=== PATIENT | male | born 1955 | race Caucasian/White ===

== ENCOUNTER 2019-07-25 13:04 | Observation (INO) | payer OTHER ==
[2019-07-25] MEDS ORDERED: SODIUM CHLORIDE 0.9% 1,000 ML IV STA ×2 (13:40)
[2019-07-25] MEDS ORDERED: FAMOTIDINE 20 MG/2 ML VIAL IV STA (13:41)
--- NOTE | 2019-07-25 13:42 | ED ---
General Adult HPI - General Chief complaint: Nausea/Vomiting/Diarrhea Stated complaint: Vomiting Time Seen by Provider: 07/25/19 13:31 Source: patient, RN notes reviewed Mode of arrival: ambulatory Limitations: no limitations - History of Present Illness Initial comments: Patient is a pleasant 62-year-old male presenting to the emergency department with vomiting and dizziness. Patient does have history of previous dizziness. Patient states he took some Augmentin for the first time and after that started vomiting multiple times and has been sweaty. Patient has somewhat limited history because he does not feel well and is vomiting during evaluation. Patient states there may be some minimal shortness of breath and minimal abdominal discomfort which he feels is likely related with emesis. No weakness. Patient states he does also have a mild headache. - Related Data Home Medications Medication Instructions Recorded Confirmed Losartan/Hydrochlorothiazide 1 tab PO DAILY@1200 08/20/15 05/29/16 [Losartan-Hctz 100-25 mg Tab] Multivitamins, Thera [Multivitamin] 1 tab PO DAILY@1200 08/20/15 05/29/16 Ibuprofen [Motrin] 400 mg PO Q6HR PRN 05/11/16 05/29/16 HYDROcodone/APAP 5-325MG [[place] 5] 1 - 2 tab PO Q4H PRN 05/29/16 05/29/16 Previous Rx's Medication Instructions Recorded Amoxicillin/Potassium Clav 1 tab PO Q12HR #20 tab 06/01/16 [Augmentin 500-125 Tablet] Nicotine 14Mg/24Hr Patch [Habitrol] 1 patch TRANSDERM DAILY #30 patch 06/01/16 metroNIDAZOLE [Flagyl] 500 mg PO BID #20 tab 06/01/16 Allergies Allergy/AdvReac Type Severity Reaction Status Date / Time No Known Allergies Allergy Verified 05/29/16 08:35 Review of Systems ROS Statement: Those systems with pertinent positive or pertinent negative responses have been documented in the HPI. ROS Other: All systems not noted in ROS Statement are negative. Constitutional: Denies: fever Eyes: Denies: eye pain ENT: Denies: ear pain Respiratory: Denies: cough Cardiovascular: Denies: chest pain Endocrine: Denies: fatigue Gastrointestinal: Reports: as per HPI, nausea, vomiting Genitourinary: Denies: dysuria Musculoskeletal: Denies: back pain Skin: Denies: rash Neurological: Reports: headache, vertigo. Denies: weakness, confusion Past Medical History Past Medical History: Hypertension Additional Past Medical History / Comment(s): Recent bronchitis, hx [place] Palsy History of Any Multi-Drug Resistant Organisms: None Reported Past Surgical History: Appendectomy, Tonsillectomy Additional Past Surgical History / Comment(s): 2016 colonoscopy, tumor removed from rt side lower back. Past Anesthesia/Blood Transfusion Reactions: No Reported Reaction Past Psychological History: No Psychological Hx Reported Smoking Status: Current every day smoker Past Alcohol Use History: None Reported Past Drug Use History: None Reported - Past Family History Mother Family Medical History: Cancer Additional Family Medical History / Comment(s): Mother of lymphoma. Father Family Medical History: Coronary Artery Disease (CAD), Deep Vein Thrombosis (DVT) Additional Family Medical History / Comment(s): Father has had CABG General Exam Limitations: no limitations General appearance: alert Head exam: Present: normocephalic Eye exam: Present: normal appearance, PERRL, EOMI. Absent: nystagmus ENT exam: Present: normal oropharynx Neck exam: Present: normal inspection Respiratory exam: Present: normal lung sounds bilaterally Cardiovascular Exam: Present: regular rate, normal rhythm Expanded Peripheral pulses: 2+: Radial (R), Radial (L), Posterior Tibialis (R), Posterior Tibialis (L), Dorsalis Pedis (R), Dorsalis Pedis (L) GI/Abdominal exam: Present: soft. Absent: tenderness Extremities exam: Present: normal inspection. Absent: pedal edema, calf tenderness Neurological exam: Present: alert, CN II-XII intact. Absent: motor sensory deficit Expanded Neurological exam: Present: protecting the airway Patient oriented to: Present: person, place, time Speech: Present: fluid speech Motor strength exam: RUE: 5, LUE: 5, RLE: 5, LLE: 5 Eye Response: (4) open spontaneously Motor Response: (6) obeys commands Verbal Response: (5) oriented Psychiatric exam: Present: flat affect Skin exam: Present: diaphoretic Course Vital Signs 07/25/19 07/25/19 07/25/19 13:21 13:35 14:00 Temperature 97.8 F Pulse Rate 94 102 H 99 Respiratory 18 19 17 Rate Blood Pressure 79/57 115/80 116/75 O2 Sat by Pulse 97 100 100 Oximetry 07/25/19 07/25/19 14:27 15:06 Temperature Pulse Rate 100 97 Respiratory 18 17 Rate Blood Pressure 105/66 109/82 O2 Sat by Pulse 100 100 Oximetry EKG Findings - EKG Comments: EKG Findings:: Normal sinus rhythm 97. ME 136. QRS 96. QT 354. QTC 449. Normal axis. Normal QRS. No acute ST change. Medical Decision Making - Medical Decision Making Patient again reevaluated and feels somewhat improved however still feels dizzy. Secondary to patient's poor parents case was discussed with Dr. Baldwin, who will admit covering for Dr. Louis. - Lab Data Result diagrams: 07/25/19 13:50 07/25/19 13:50 Lab Results 07/25/19 07/25/19 07/25/19 Range/Units 13:50 13:50 13:50 WBC 12.7 H (3.8-10.6) k/uL RBC 5.94 H (4.30-5.90) m/uL Hgb 18.9 H (13.0-17.5) gm/dL Hct 54.4 H (39.0-53.0) % MCV 91.6 (80.0-100.0) fL MCH 31.8 (25.0-35.0) pg MCHC 34.8 (31.0-37.0) g/dL RDW 12.9 (11.5-15.5) % Plt Count 285 (150-450) k/uL Neutrophils % (Manual) 68 % Band Neutrophils % 6 % Lymphocytes % (Manual) 22 % Monocytes % (Manual) 4 % Neutrophils # (Manual) 9.30 H (1.3-7.7) k/uL Lymphocytes # (Manual) 2.79 (1.0-4.8) k/uL Monocytes # (Manual) 0.51 (0-1.0) k/uL Nucleated RBCs 0 (0-0) /100 WBC Manual Slide Review Performed Reactive Lymphocytes Present PT 9.4 (9.0-12.0) sec INR 0.9 (<1.2) APTT 19.6 L (22.0-30.0) sec Sodium 135 L (137-145) mmol/L Potassium 4.7 (3.5-5.1) mmol/L Chloride 99 (98-107) mmol/L Carbon Dioxide 20 L (22-30) mmol/L Anion Gap 16 mmol/L BUN 19 (9-20) mg/dL Creatinine 1.42 H (0.66-1.25) mg/dL Est GFR (CKD-EPI)AfAm 61 (>60 ml/min/1.73 sqM) Est GFR (CKD-EPI)NonAf 53 (>60 ml/min/1.73 sqM) Glucose 190 H (74-99) mg/dL Calcium 10.6 H (8.4-10.2) mg/dL Total Bilirubin 0.9 (0.2-1.3) mg/dL AST 37 (17-59) U/L ALT 30 (4-49) U/L Alkaline Phosphatase 105 (38-126) U/L Creatine Kinase 68 (55-170) U/L Troponin I (0.000-0.034) ng/mL Total Protein 9.4 H (6.3-8.2) g/dL Albumin 5.3 H (3.5-5.0) g/dL Amylase 92 (30-110) U/L Lipase 240 (23-300) U/L 07/25/19 Range/Units 13:50 WBC (3.8-10.6) k/uL RBC (4.30-5.90) m/uL Hgb (13.0-17.5) gm/dL Hct (39.0-53.0) % MCV (80.0-100.0) fL MCH (25.0-35.0) pg MCHC (31.0-37.0) g/dL RDW (11.5-15.5) % Plt Count (150-450) k/uL Neutrophils % (Manual) % Band Neutrophils % % Lymphocytes % (Manual) % Monocytes % (Manual) % Neutrophils # (Manual) (1.3-7.7) k/uL Lymphocytes # (Manual) (1.0-4.8) k/uL Monocytes # (Manual) (0-1.0) k/uL Nucleated RBCs (0-0) /100 WBC Manual Slide Review Reactive Lymphocytes PT (9.0-12.0) sec INR (<1.2) APTT (22.0-30.0) sec Sodium (137-145) mmol/L Potassium (3.5-5.1) mmol/L Chloride (98-107) mmol/L Carbon Dioxide (22-30) mmol/L Anion Gap mmol/L BUN (9-20) mg/dL Creatinine (0.66-1.25) mg/dL Est GFR (CKD-EPI)AfAm (>60 ml/min/1.73 sqM) Est GFR (CKD-EPI)NonAf (>60 ml/min/1.73 sqM) Glucose (74-99) mg/dL Calcium (8.4-10.2) mg/dL Total Bilirubin (0.2-1.3) mg/dL AST (17-59) U/L ALT (4-49) U/L Alkaline Phosphatase (38-126) U/L Creatine Kinase (55-170) U/L Troponin I <0.012 (0.000-0.034) ng/mL Total Protein (6.3-8.2) g/dL Albumin (3.5-5.0) g/dL Amylase (30-110) U/L Lipase (23-300) U/L - Radiology Data Radiology results: report reviewed (Computed tomography scan of the brain shows no acute hemorrhage or shift. Sinus disease CT angiogram of the brain and neck show some narrowing of the A1 segment on the right 60%.) Disposition Clinical Impression: Vertigo, Hypotension Disposition: ADMITTED IP TO THIS HOSP Is patient prescribed a controlled substance at d/c from ED?: No Referrals: Pacheco Louis DO [Primary Care Provider] - 1-2 days Decision Time: 15:51
[2019-07-25] MEDS ORDERED: METOCLOPRAMIDE 5 MG/ML 2 ML VIAL IVP STA (13:45)
[2019-07-25 14:31] LABS: Albumin 5.3 g/dL (3.5-5.0); Calcium 10.6 mg/dL (8.4-10.2); Total Bilirubin 0.9 mg/dL (0.2-1.3); Total Protein 9.4 g/dL (6.3-8.2)
[2019-07-25 14:33] LABS: Potassium 4.7 mmol/L (3.5-5.1)
[2019-07-25] MEDS ORDERED: MECLIZINE 12.5 MG TAB PO STA (14:35)
[2019-07-25 14:36] LABS: INR 0.9 (<1.2); Prothrombin Time 9.4 sec (9.0-12.0)
[2019-07-25 14:48] LABS: Partial Thromboplastin Time 19.6 sec (22.0-30.0)
[2019-07-25 14:49] LABS: HCT 54.4 % (39.0-53.0); HGB 18.9 gm/dL (13.0-17.5); MCH 31.8 pg (25.0-35.0); MCHC 34.8 g/dL (31.0-37.0); MCV 91.6 fL (80.0-100.0); Mean Platelet Volume 9.7; RBC 5.94 m/uL (4.30-5.90); RDW 12.9 % (11.5-15.5); WBC 12.7 k/uL (3.8-10.6)
--- NOTE | 2019-07-25 15:01 | CT ---
EXAMINATION TYPE: CT brain wo con DATE OF EXAM: 07/25/2019 COMPARISON: CT brain dated 03/21/2012 HISTORY: Headache and vertigo CT DLP: 1518.5 mGycm Automated exposure control for dose reduction was used. TECHNIQUE: CT scan of the head is performed without contrast. FINDINGS: There is no acute intracranial hemorrhage or midline shift identified. There is diffuse v entricular and sulcal prominence consistent with diffuse age-related cerebral atrophy. No suspicious extra-axial fluid collection. The globes are intact. Moderate paranasal sinus disease is seen with m oderate mucosal thickening of the ethmoid sinuses extending into the frontal recesses into the fronta l sinuses. Mild rightward nasal septal deviation and a small rightward nasal septal spur. Maxillary s inuses, sphenoid sinuses and mastoid air cells are well aerated. 9 mm right frontal subcutaneous nodu le is seen, possibly subcutaneous sebaceous cyst. IMPRESSION: 1. No acute intracranial hemorrhage or midline shift. 2. Moderate paranasal sinus disease of ethmoid sinuses extending into the frontal sinuses. 3. 9 mm right subcutaneous frontal scalp lesion. Correlate with physical exam, possible subcutaneous sebaceous cyst.
--- NOTE | 2019-07-25 15:24 | CT ---
EXAMINATION TYPE: CT angio head neck DATE OF EXAM: 07/25/2019 HISTORY: headache, nausea, vomiting, dizziness COMPARISON: CT brain of the same date CT DLP: 466.5 mGycm. Automated Exposure Control for Dose Reduction was Utilized. TECHNIQUE: CTA scan of the neck is performed with IV Contrast, patient injected with 65 mL of Isovue 370, axial images are obtained, coronal and sagittal reformatted images are reviewed. Three-D recons tructed images are created on an independent workstation and reviewed. 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 Nonh emodynamically significant calcific atheromatous change of the proximal left internal carotid artery. Remaining visualized portions of the cervical internal carotid arteries and carotid bulbs are patent . The vertebral arteries are patent with slight dominance of the right vertebral artery. The right anterior cerebral artery A1 segment is diminutive in comparison to the left but does appear patent. Posterior communicating arteries are not well visualized and may be diminutive or congenital ly absent. Other: Moderate emphysematous changes of the lung apices that are predominantly paraseptal and spicul ated biapical pleural parenchymal scarring. Calcifications appear dystrophic of the left thyroid lobe . Incidental note of a right-sided niurka bullosa. Mild multilevel degenerative change of the cervica l spine. Moderate paranasal sinus disease is seen as discussed on the CT brain dictation of the same date. IMPRESSION: 1. Asymmetric narrowing of the A1 segment on the right, approximately 60% stenosis. This may be conge nital or acquired. No evidence of aneurysmal outpouching or dissection in the major arterial vasculat ure of the head or neck. 2. Moderate emphysematous changes in lung apices. 3. Moderate paranasal sinus disease.
[2019-07-25 15:46] LABS: Band Neutrophils % 6 %; Lymphocytes # (M) 2.79 k/uL (1.0-4.8); Monocytes # (M) 0.51 k/uL (0-1.0); Neutrophils % (M) 68 %; Nucleated Red Blood Cells 0 /100 WBC (0-0); Reactive Lymphocytes Present; Total Cells Counted 100
[2019-07-25 15:47] LABS: Platelet Count 285 k/uL (150-450)
[2019-07-25] MEDS ORDERED: NALOXONE 0.4 MG/ML 1 ML VIAL IV PRN (15:51)
[2019-07-25] MEDS ORDERED: LORazepam 2 MG/ML INJ IV PRN (15:51)
[2019-07-25] MEDS ORDERED: MECLIZINE 25 MG TAB PO PRN (15:54)
[2019-07-25 16:43] LABS: Appearance,Urine Clear (Clear); Bilirubin,Urine Negative (Negative); Blood,Urine Small (Negative); Color,Urine Yellow; Glucose,Urine (UA) Negative (Negative); Ketones,Urine Negative (Negative); Leukocyte Esterase,Urine Negative (Negative); Nitrite,Urine Negative (Negative); PH, Urine 5.5 (5.0-8.0); Protein,Urine Trace (Negative); RBC,Urine 3 /hpf (0-5); Urobilinogen,Urine <2.0 mg/dL (<2.0); WBC,Urine 1 /hpf (0-5)
[2019-07-25 16:48] LABS: Specific Gravity,Urine >1.050 (1.001-1.035)
[2019-07-25] MEDS: SODIUM CHLORIDE 0.9% 1,000 ML IV SCH (18:00)
[2019-07-25 18:03] VITALS: RESP 18
[2019-07-25] MEDS: METOCLOPRAMIDE 5 MG/ML 2 ML VIAL IVP SCH ×2 (19:08→23:23)
[2019-07-25] MEDS ORDERED: ACETAMINOPHEN TAB 325 MG TAB PO STA (22:41)
[2019-07-26] MEDS: METOCLOPRAMIDE 5 MG/ML 2 ML VIAL IVP SCH ×2 (06:13→12:40)
[2019-07-26] MEDS: SODIUM CHLORIDE 0.9% 1,000 ML IV SCH (06:14)
[2019-07-26] MEDS ORDERED: ENOXAPARIN 40 MG/0.4 ML SYRINGE SQ SCH (10:15)
[2019-07-26] MEDS ORDERED: LORATADINE 10 MG TAB PO SCH (10:15)
[2019-07-26] MEDS ORDERED: NICOTINE 21MG/24HR PATCH TRANSDERM SCH (10:15)
[2019-07-26] MEDS ORDERED: LOSARTAN-HCTZ 50-12.5 MG 1 EACH TAB PO SCH (10:15)
[2019-07-26 11:47] VITALS: TEMP 98.3
[2019-07-26] MEDS ORDERED: MULTIVITAMINS, THERA 1 EACH TAB PO SCH (12:00)
--- NOTE | 2019-07-26 12:46 | P.CNNES ---
History of Present Illness Consult date: 07/26/19 Requesting physician: Duke Bee Reason for Consult: Vertigo History of Present Illness: Patient is a 64-year-old male with history of chronic sinus disease. Patient states that he had acute sinusitis in end of May 2019. He went to an urgent care, where he was given 2 prescriptions, one was Augmentin and another prescription which she does not remember. Patient to the other medication, did not touch Augmentin and his symptoms improved. Patient states that last Wednesday on 07/22/2019, he started having frontal headache, sinus congestion and recurrence of sinusitis. Patient was also noticing dizziness, which he describes as lightheadedness. As his symptoms persisted, he took 1 tablet of Augmentin yesterday morning. About 5 minutes after taking Augmentin, he started vomiting really bad, became dizzy, lightheaded, started spinning. He also noticed excessive sweating and felt burning sensation in his body. He came to the ER, and his blood pressure was 79/57, pulse rate 94 temperature 97.8. Patie nt underwent computed tomography scan of the head, which revealed no acute intracranial process. Moderate paranasal sinus disease of ethmoid sinuses extending into the frontal sinuses. 9 mm right subcutaneous frontal scalp region. Correlate with physical exam, possible subcutaneous sebaceous cyst. Patient had CTA of head and neck, which revealed asymmetric narrowing of the A1 segment of the right, approximately 60% stenosis. This may be congenital or acquired. No evidence of aneurysmal outpouchings or dissection in the major arterial vasculature of the head or neck. Moderate emphysematous changes in the lung apices. Moderate paranasal sinus disease. EKG shows normal sinus rhythm. Patient's blood test shows the clinical team manager 0.7 hemoglobin 18.9 platelets are normal 25. Sodium 135 potassium 4.7 renal functions are normal. Liver panel normal. UA negative. Patient denies any focal symptoms. Patient has history of hypertension but denies diabetes. Denies alcohol use. Patient has smoked 1 pack per day since age 20, for over 40 years. Denies any history of strokes TIA. Review of Systems Dizziness, headache. Denies any numbness tingling focal weakness. Denies chest pain shortness of breath wheezing or cough. Past Medical History Past Medical History: Hypertension Additional Past Medical History / Comment(s): Recent bronchitis, hx [place] Palsy History of Any Multi-Drug Resistant Organisms: None Reported Past Surgical History: Appendectomy, Tonsillectomy Additional Past Surgical History / Comment(s): 2016 colonoscopy, tumor removed from rt side lower back. Past Anesthesia/Blood Transfusion Reactions: No Reported Reaction Past Psychological History: No Psychological Hx Reported Additional Psychological History / Comment(s): Pt resides alone. He is independent. 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 History of tobacco use. Denies significant alcohol use or recreational drug use. No experience. Travel history. No animal exposures Smoking Status: Current every day smoker Past Alcohol Use History: None Reported Additional Past Alcohol Use History / Comment(s): smokes 1 pack per day, has smoked since 1976. Past Drug Use History: None Reported - Past Family History Mother Family Medical History: Cancer Additional Family Medical History / Comment(s): Mother of lymphoma. Father Family Medical History: Coronary Artery Disease (CAD), Deep Vein Thrombosis (DVT) Additional Family Medical History / Comment(s): Father has had CABG Medications and Allergies Home Medications Medication Instructions Recorded Confirmed Type Multivitamins, Thera [Multivitamin] 1 tab PO DAILY@1200 08/20/15 07/25/19 History Ibuprofen [Motrin] 400 mg PO Q6HR PRN 05/11/16 07/25/19 History Amoxicillin/Potassium Clav 1 tab PO BID 07/25/19 07/25/19 History [Augmentin 875-125 Tablet] Fexofenadine HCl [Sol Allergy] 180 mg PO DAILY 07/25/19 07/25/19 History Losartan-Hctz 50-12.5 mg [Hyzaar 2 tab PO DAILY 07/25/19 07/25/19 History 50-12.5] Nicotine 21Mg/24Hr Patch [Habitrol] 1 patch TRANSDERM DAILY 07/25/19 07/25/19 History Allergies Allergy/AdvReac Type Severity Reaction Status Date / Time No Known Allergies Allergy Verified 07/25/19 16:28 Physical Examination - Vital Signs Vital Signs: Vital Signs Temp Pulse Pulse Resp BP BP Pulse Ox 07/26/19 11:47 98.3 F 55 L 18 145/77 97 07/26/19 08:00 97.6 F 55 L 18 128/74 96 07/26/19 04:00 98.0 F 70 18 112/63 94 L 02/12/20 00:00 98.3 F 96 18 121/76 96 07/25/19 23:20 18 07/25/19 20:00 18 07/25/19 19:48 98.3 F 107 H 129/73 98 07/25/19 19:26 18 07/25/19 18:01 110 H 18 122/82 98 07/25/19 15:06 97 17 109/82 100 07/25/19 14:27 100 18 105/66 100 07/25/19 14:00 99 17 116/75 100 07/25/19 13:35 102 H 19 115/80 100 07/25/19 13:21 97.8 F 94 18 79/57 97 Intake and Output 07/25/19 07/26/19 07/26/19 22:59 06:59 14:59 Intake Total 240 Balance 240 Intake: Oral 240 Other: # Voids 1 1 Weight 77.111 kg On examination patient is a late middle aged male, in no distress. Patient is alert and awake fully oriented to time place and person. His speech and language functions are normal. Patient has mild nasal tone to his voice related to his sinus disease. Attention, concentration and fund of knowledge is adequate. On cranial exertion pupils are round and reactive to light, visual ng are full on confrontation, extraocular muscles are intact with no nystagmus. Face is symmetric, tongue protrudes to the midline. Palatal elevation and sensation normal. On muscle strength testing there is no pronator drift and the strength is normal in arms and legs distally and proximally. Reflexes are symmetric, 1+ in the upper limbs, 2+ in the lower limbs and plantars downgoing. Sensory touch is equal. No ataxia for [id number] testing, although patient has mild tremulousness for [id number] testing bilaterally. Tone and bulk of muscles normal. No carotid bruit or murmur. Peripheral pulses present. Abdomen soft nontender. Results - Laboratory Findings CBC and BMP: 07/25/19 13:50 07/25/19 13:50 Abnormal Lab Findings: Abnormal Labs 07/25/19 07/25/19 07/25/19 13:50 13:50 13:50 WBC 12.7 H RBC 5.94 H Hgb 18.9 H Hct 54.4 H Neutrophils # (Manual) 9.30 H APTT 19.6 L Sodium 135 L Carbon Dioxide 20 L Creatinine 1.42 H Glucose 190 H Calcium 10.6 H Total Protein 9.4 H Albumin 5.3 H Ur Specific Likely Urine Protein Urine Blood 07/25/19 16:30 WBC RBC Hgb Hct Neutrophils # (Manual) APTT Sodium Carbon Dioxide Creatinine Glucose Calcium Total Protein Albumin Ur Specific Likely >1.050 H Urine Protein Trace H Urine Blood Small H Assessment and Plan Assessment: * Acute on chronic ethmoid and frontal sinusitis. * Vertigo, nausea vomiting likely due to above. Symptoms started after taking Augmentin, therefore penicillin ALLERGY is also a possibility. * Hypertension * Tobacco user. Plan: * Patient has acute on chronic paranasal sinusitis. He did not tolerate Augmentin, due to possible ALLERGY. I would suggest trying azithromycin to treat paranasal sinus disease. * Patient states that he does have ALLERGIES and feels better with Sol. He was recommended to continue Sol for ALLERGIES. * Patient was recommended tobacco cessation. * CTA of head showed asymmetric narrowing of the A1 segment of the right BILLIE. Need to optimize vascular risk factors including hypertension, tobacco cessation and start aspirin 81 mg daily. Suggest checking fasting a.m. lipid panel and hemoglobin A1c as an outpatient through his primary physician, to assess for other vascular risk factors. * Neurologically clear for discharge.
[2019-07-26 15:54] VITALS: BP 129/72; PULSE 62
[2019-07-26] MEDS ORDERED: IPRATROPIUM-ALBUTEROL 3 ML NEB INHALATION SCH (16:00)
[2019-07-26] MEDS ORDERED: OXYMETAZOLINE 0.05% NASL SPRAY 1 SPRAY BOTTLE NASAL SCH (16:00)
[2019-07-26] MEDS ORDERED: LORATADINE-PSEUDOEPH 5-120 MG 1 EACH TAB.ER.12H PO SCH (21:00)
--- NOTE | 2019-07-27 14:25 | P.HPIM ---
History of Present Illness H&P Date: 07/26/19 Chief Complaint: Vomiting dizzy History of presenting complaint: This is a very pleasant 64-year-old patient of Dr. Louis. Long-standing smoker. Patient is also also had multiple problems with his sinuses. His frontal sinuses see described as being blocked for years and feels. In and out off and on. Yet again he is suffering from an acute flareup with a fullness bet ween the eyebrows eyebrows. Because of acute flareup he was given a prescription for Augmentin. Soon after taking the medicine he started vomiting perspiring and dizzy as a result of which he decided to present to the ER. There was no shortness of breath no swelling of the throat or any hives. He was initially treated the ER for possible ALLERGIC reaction. When I see the patient he was seen much better. We'll still of fullness in his forehead. Had some dizziness. Which is improved. Appetite has been fine. Review of systems: GEN.: Tired EYES: None HEENT: [As above NECK: None RESPIRATORY: Some shortness of breath and wheezing CARDIOVASCULAR: None GASTROINTESTINAL: None GENITOURINARY: None MUSCULOSKELETAL: None LYMPHATICS: None HEMATOLOGICAL: None PSYCHIATRY: None NEUROLOGICAL: No focal Past medical history to include: Hypertension, Faustin's palsy, sinus infections Social history: Lives alone. 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 Denies alcohol abuse or recreational drugs Physical examination: VITAL SIGNS: 97.8, 94, 18, 115/80, and 7% on room air GENERAL: BMI 25.8, laying in bed awake comfortable. EYES: Pupils equal. Conjunctiva normal. HEENT: External appearance of nose and ears normal, oral cavity grossly normal mild tenderness over the frontal sinuses between the eyebrows. NECK: JVD not raised; masses not palpable. HEART: First and second heart sounds are normal; no edema. LUNGS: Respiratory rate normal; decreased breath sounds mild wheezing. ABDOMEN: Soft, nontender, liver spleen not palpable, no masses palpable. PSYCH: Alert and oriented x3; mood and affect normal. NEUROLOGICAL: Cranial nerves grossly intact; no facial asymmetry, power and sensation grossly intact. LYMPHATICS: No lymph nodes palpable in the axilla and neck INVESTIGATIONS, reviewed in the clinical context: White count 12.7 hemoglobin 18.9 platelets 285 potassium 4.7 bun 19 creatinine 1.42 EKG tracing personally reviewed by me-normal sinus rhythm Computed tomography scan of the brain-moderate paranasal sinus disease is reported sinuses extending into the frontal sinuses. CT angiogram of the head and neck-moderate emphysematous changes of the lung apex, asymmetric narrowing of the A1 segment of the right about 60% on the right anterior cerebral artery Assessment: -Acute gastritis as a side effect causing nausea vomiting without maintenance. Clinical presentation was not compatible with ALLERGIC reaction. -Acute on chronic frontal sinusitis -Acute emphysema of flareup in a smoker -Chronic nicotine dependence patient cigarette smoker -Elevated creatinine at this point recent unknown for further workup as an outpatient Plan: Care was discussed at length with the patient. Bronchodilators will be given. Some steroid. Also given Claritin-D. Patient told to follow-up with ENT. He should follow with his PCP and get a repeat creatinine check. Increase oral fluids. Neurology was consulted for their opinion. Smoke cessation counseling: This was done with the patient. Nicotine patch is being given. More than 3 m inutes was spent for this Past Medical History Past Medical History: Hypertension Additional Past Medical History / Comment(s): Recent bronchitis, hx [place] Palsy History of Any Multi-Drug Resistant Organisms: None Reported Past Surgical History: Appendectomy, Tonsillectomy Additional Past Surgical History / Comment(s): 2016 colonoscopy, tumor removed from rt side lower back. Past Anesthesia/Blood Transfusion Reactions: No Reported Reaction Past Psychological History: No Psychological Hx Reported Additional Psychological History / Comment(s): Pt resides alone. He is independent. Single. One adult son. Local gaming worker. History of tobacco use. Denies significant alcohol use or recreational drug use. No experience. Travel history. No animal exposures Smoking Status: Current every day smoker Past Alcohol Use History: None Reported Additional Past Alcohol Use History / Comment(s): smokes 1 pack per day, has smoked since 1976. Past Drug Use History: None Reported - Past Family History Mother Family Medical History: Cancer Additional Family Medical History / Comment(s): Mother of lymphoma. Father Family Medical History: Coronary Artery Disease (CAD), Deep Vein Thrombosis (DVT) Additional Family Medical History / Comment(s): Father has had CABG Medications and Allergies Home Medications Medication Instructions Recorded Confirmed Type Multivitamins, Thera [Multivitamin 1 tab PO DAILY@1200 08/20/15 07/25/19 History (formulary)] Ibuprofen [Motrin] 400 mg PO Q6HR PRN 05/11/16 07/25/19 History Losartan-Hctz 50-12.5 mg [Hyzaar 2 tab PO DAILY 07/25/19 07/25/19 History 50-12.5] Nicotine 21Mg/24Hr Patch [Habitrol] 1 patch TRANSDERM DAILY 07/25/19 07/25/19 History Albuterol Inhaler [Ventolin Hfa 1 - 2 puff INHALATION RT-Q6H PRN 07/26/19 Rx Inhaler] #1 inhaler Beclomethasone Dip 80 Mcg/Puff 1 puff INHALATION BID #1 puff 07/26/19 Rx [Qvar] Ipratropium [place] [Atrovent Hfa] 2 puff INHALATION QID #1 inhaler 07/26/19 Rx Loratadine-Pseudoeph 5-120 mg 1 each PO Q12HR #14 tab.er.12h 07/26/19 Rx [Claritin-D 12 Hour] Oxymetazoline 0.05% Nasl [place] 2 spray NASAL TID bottle 07/26/19 Rx [Afrin 0.05% Nasal [place]] Allergies Allergy/AdvReac Type Severity Reaction Status Date / Time No Known Allergies Allergy Verified 07/25/19 16:28 Physical Exam Vitals: Vital Signs Temp Pulse Pulse Resp BP BP Pulse Ox 07/26/19 08:00 97.6 F 55 L 18 128/74 96 07/26/19 04:00 98.0 F 70 18 112/63 94 L 07/26/19 00:00 98.3 F 96 18 121/76 96 07/25/19 23:20 18 07/25/19 20:00 18 07/25/19 19:48 98.3 F 107 H 129/73 98 07/25/19 19:26 18 07/25/19 18:01 110 H 18 122/82 98 07/25/19 15:06 97 17 109/82 100 07/25/19 14:27 100 18 105/66 100 07/25/19 14:00 99 17 116/75 100 07/25/19 13:35 102 H 19 115/80 100 07/25/19 13:21 97.8 F 94 18 79/57 97 Intake and Output 07/25/19 07/26/19 07/26/19 22:59 06:59 14:59 Intake Total 240 Balance 240 Intake: Oral 240 Other: # Voids 1 Weight 77.111 kg Results CBC & Chem 7: 07/25/19 13:50 07/25/19 13:50 Labs: Abnormal Lab Results - Last 24 Hours (Table) 07/25/19 07/25/19 07/25/19 Range/Units 13:50 13:50 13:50 WBC 12.7 H (3.8-10.6) k/uL RBC 5.94 H (4.30-5.90) m/uL Hgb 18.9 H (13.0-17.5) gm/dL Hct 54.4 H (39.0-53.0) % Neutrophils # (Manual) 9.30 H (1.3-7.7) k/uL APTT 19.6 L (22.0-30.0) sec Sodium 135 L (137-145) mmol/L Carbon Dioxide 20 L (22-30) mmol/L Creatinine 1.42 H (0.66-1.25) mg/dL Glucose 190 H (74-99) mg/dL Calcium 10.6 H (8.4-10.2) mg/dL Total Protein 9.4 H (6.3-8.2) g/dL Albumin 5.3 H (3.5-5.0) g/dL Ur Specific [place] (1.001-1.035) Urine Protein (Negative) Urine Blood (Negative) 07/25/19 Range/Units 16:30 WBC (3.8-10.6) k/uL RBC (4.30-5.90) m/uL Hgb (13.0-17.5) gm/dL Hct (39.0-53.0) % Neutrophils # (Manual) (1.3-7.7) k/uL APTT (22.0-30.0) sec Sodium (137-145) mmol/L Carbon Dioxide (22-30) mmol/L Creatinine (0.66-1.25) mg/dL Glucose (74-99) mg/dL Calcium (8.4-10.2) mg/dL Total Protein (6.3-8.2) g/dL Albumin (3.5-5.0) g/dL Ur Specific [place] >1.050 H (1.001-1.035) Urine Protein Trace H (Negative) Urine Blood Small H (Negative) Thrombosis Risk Factor Assmnt - Choose All That Apply Each Risk Factor Represents 2 Points: Age 61-74 years Thrombosis Risk Factor Assessment Total Risk Factor Score: 2 Thrombosis Risk Factor Assessment Level: Low Risk
--- NOTE | 2019-07-27 14:29 | P.DS ---
Providers Date of admission: 07/25/19 15:51 Expected date of discharge: 07/26/19 Attending physician: Robert Baldwin Consults: 07/25/19 15:52 Consult Physician Urgent Consulting Provider: Gianna Cronin Consult Reason/Comments: vertigo Do you want consulting provider notified?: Yes Primary care physician: [facility] Course: Chief Complaint: Vomiting dizzy History of presenting complaint: This is a very pleasant 64-year-old patient of Dr. Louis. Long-standing smoker. Patient is also also had multiple problems with his sinuses. His f rontal sinuses see described as being blocked for years and feels. In and out off and on. Yet again he is suffering from an acute flareup with a fullness between the eyebrows eyebrows. Because of acute flareup he was given a prescription for Augmentin. Soon after taking the medicine he started vomiting perspiring and dizzy as a result of which he decided to present to the ER. There was no shortness of breath no swelling of the throat or any hives. He was initially treated the ER for possible ALLERGIC reaction. When I see the patient he was seen much better. We'll still of fullness in his forehead. Had some dizziness. Which is improved. Appetite has been fine. Admitted with acute gastric side effect of Augmentin. Not ALLERGIC reaction. Also acute on chronic frontal sinusitis. Seen by Dr. Olivera from neurology. Workup unremarkable. Did give the patient bronchodilators burst of steroids and some antihistaminic and congestion. Counseled about smoking. Feeling better. Told to follow up with ENT. Consultation: Dr. Olivera from neurology Physical examination: VITAL SIGNS: 98.3, 62, 129/72, 95% room air GENERAL: Sitting up, comfortable EYES: Pupils equal. Conjunctiva normal. HEENT: External appearance of nose and ears normal, oral cavity grossly normal mild tenderness over the frontal sinuses between the eyebrows. NECK: JVD not raised; masses not palpable. HEART: First and second heart sounds are normal; no edema. LUNGS: Respiratory rate normal; decreased breath sounds mild wheezing. ABDOMEN: Soft, nontender, liver spleen not palpable, no masses palpable. PSYCH: Alert and oriented x3; mood and affect normal. INVESTIGATIONS, reviewed in the clinical context: White count 12.7 hemoglobin 18.9 platelets 285 potassium 4.7 bun 19 creatinine 1.42 EKG tracing personally reviewed by me-normal sinus rhythm Computed tomography scan of the brain-moderate paranasal sinus disease is reported sinuses extending into the frontal sinuses. CT angiogram of the head and neck-moderate emphysematous changes of the lung apex, asymmetric narrowing of the A1 segment of the right about 60% on the right anterior cerebral artery Assessment: -Acute gastritis as a side effect causing nausea vomiting without maintenance. Clinical presentation was not compatible with ALLERGIC reaction. -Acute on chronic frontal sinusitis -Acute emphysema flareup in a smoker -Chronic nicotine dependence patient cigarette smoker -Elevated creatinine at this point recent unknown for further workup as an outpatient Disposition: Home Plan - Discharge Summary Discharge Rx Participant: No New Discharge Prescriptions: New Oxymetazoline 0.05% Nasl [place] [Afrin 0.05% Nasal [place]] 2 spray NASAL TID bottle Ipratropium [place] [Atrovent Hfa] 2 puff INHALATION QID #1 inhaler Loratadine-Pseudoeph 5-120 mg [Claritin-D 12 Hour] 1 each PO Q12HR #14 tab.er.12h Beclomethasone Dip 80 Mcg/Puff [Qvar] 1 puff INHALATION BID #1 puff Albuterol Inhaler [Ventolin Hfa Inhaler] 1 - 2 puff INHALATION RT-Q6H PRN #1 inhaler PRN Reason: Wheezing Continue Multivitamins, Thera [Multivitamin (formulary)] 1 tab PO DAILY@1200 Ibuprofen [Motrin] 400 mg PO Q6HR PRN PRN Reason: Pain Nicotine 21Mg/24Hr Patch [Habitrol] 1 patch TRANSDERM DAILY Losartan-Hctz 50-12.5 mg [Hyzaar 50-12.5] 2 tab PO DAILY Discontinued Amoxicillin/Potassium Clav [Augmentin 875-125 Tablet] 1 tab PO BID Fexofenadine HCl [Sol Allergy] 180 mg PO DAILY Discharge Medication List Multivitamins, Thera [Multivitamin (formulary)] 1 tab PO DAILY@1200 08/20/15 [History] Ibuprofen [Motrin] 400 mg PO Q6HR PRN 05/11/16 [History] Losartan-Hctz 50-12.5 mg [Hyzaar 50-12.5] 2 tab PO DAILY 07/25/19 [History] Nicotine 21Mg/24Hr Patch [Habitrol] 1 patch TRANSDERM DAILY 07/25/19 [History] Albuterol Inhaler [Ventolin Hfa Inhaler] 1 - 2 puff INHALATION RT-Q6H PRN #1 inhaler 07/26/19 [Rx] Beclomethasone Dip 80 Mcg/Puff [Qvar] 1 puff INHALATION BID #1 puff 07/26/19 [Rx] Ipratropium [place] [Atrovent Hfa] 2 puff INHALATION QID #1 inhaler 07/26/19 [Rx] Loratadine-Pseudoeph 5-120 mg [Claritin-D 12 Hour] 1 each PO Q12HR #14 tab.er.12h 07/26/19 [Rx] Oxymetazoline 0.05% Nasl [place] [Afrin 0.05% Nasal [place]] 2 spray NASAL TID bottle 07/26/19 [Rx] Follow up Appointment(s)/Referral(s): Pacheco Louis DO [Primary Care Provider] - 1-2 days
== END 2019-07-26 17:08 ==
LOC: EC 13:04 → 1SOBS 15:51
PROVIDERS: ADMIT Hospitalist; ATTEND Hospitalist
DX: T36.0X5A Adverse effect of penicillins, initial encounter (principal); T36.1X5A Adverse effect of cephalosporins and other beta-lactam antibiotics, initial encounter; K29.00 Acute gastritis without bleeding; R42 Dizziness and giddiness; I10 Essential (primary) hypertension; F17.210 Nicotine dependence, cigarettes, uncomplicated; J01.20 Acute ethmoidal sinusitis, unspecified; J32.2 Chronic ethmoidal sinusitis; J01.10 Acute frontal sinusitis, unspecified; J32.1 Chronic frontal sinusitis; J43.9 Emphysema, unspecified; Z79.1 Long term (current) use of non-steroidal anti-inflammatories (NSAID); Z79.891 Long term (current) use of opiate analgesic; Z79.899 Other long term (current) drug therapy; Z90.49 Acquired absence of other specified parts of digestive tract; Z90.89 Acquired absence of other organs; Z80.7 Family history of other malignant neoplasms of lymphoid, hematopoietic and related tissues; Z82.49 Family history of ischemic heart disease and other diseases of the circulatory system
CPT/HCPCS: 96372; 96375 ×2; 96376; 96361; 96374; 99285; 36415; 93005; 80053; 82150; 82550; 83690; 84484; 85025; 85610; 85730; 81001; 70496; 70450; 70498; G0378 ×2; J2060; J2765; J1650; Q9967

== ENCOUNTER 2020-07-13 00:55 | Emergency (ER) | payer OTHER ==
[2020-07-13 01:02] VITALS: TEMP 98.6
--- NOTE | 2020-07-13 01:06 | ED ---
SOB HPI - General Chief Complaint: Shortness of Breath Stated Complaint: SOB Time Seen by Provider: 07/13/20 01:00 Source: patient, EMS, RN notes reviewed, old records reviewed Mode of arrival: EMS Limitations: no limitations - History of Present Illness Initial Comments: This is a 64-year-old male DF for evaluation patient Dese for evaluation of persistent shortness of breath for weakness of. Not up and down. Patient has no recent travel history or sick contacts. But he does state that his been alcohol does have coronavirus test tomorrow although his been without fever he has had shortness of breath especially positional. His been episodic MD Complaint: shortness of breath -: days(s) Severity: moderate Severity scale (1-10): 4 Consistency: constant Improves With: nothing Worsens With: nothing Known History Of: COPD Context: recent URI, anxiety, recent illness Associated Symptoms: denies other symptoms - Related Data Home Medications Medication Instructions Recorded Confirmed Multivitamins, Thera [Multivitamin 1 tab PO DAILY@1200 08/20/15 07/25/19 (formulary)] Ibuprofen [Motrin] 400 mg PO Q6HR PRN 05/11/16 07/25/19 Losartan-Hctz 50-12.5 mg [Hyzaar 2 tab PO DAILY 07/25/19 07/25/19 50-12.5] Nicotine 21Mg/24Hr Patch [Habitrol] 1 patch TRANSDERM DAILY 07/25/19 07/25/19 Previous Rx's Medication Instructions Recorded Albuterol Inhaler (Mhu) [Ventolin 1 - 2 puff INHALATION RT-Q6H PRN 07/26/19 Hfa Inhaler (Mhu)] #1 inhaler Beclomethasone Dip 80 Mcg/Puff 1 puff INHALATION BID #1 puff 07/26/19 [Qvar] Ipratropium [place] [Atrovent Hfa] 2 puff INHALATION QID #1 inhaler 07/26/19 Loratadine-Pseudoeph 5-120 mg 1 each PO Q12HR #14 tab.er.12h 07/26/19 [Claritin-D 12 Hour] Oxymetazoline 0.05% Nasl [place] 2 spray NASAL TID bottle 07/26/19 [Afrin 0.05% Nasal [place]] Allergies Allergy/AdvReac Type Severity Reaction Status Date / Time No Known Allergies Allergy Verified 07/25/19 16:28 Review of Systems ROS Statement: Those systems with pertinent positive or pertinent negative responses have been documented in the HPI. ROS Other: All systems not noted in ROS Statement are negative. Past Medical History Past Medical History: Hypertension Additional Past Medical History / Comment(s): Recent bronchitis, hx [place] Palsy, Diverticulosis History of Any Multi-Drug Resistant Organisms: None Reported Past Surgical History: Appendectomy, Tonsillectomy Additional Past Surgical History / Comment(s): 2016 colonoscopy, tumor removed from rt side lower back. Past Anesthesia/Blood Transfusion Reactions: No Reported Reaction Past Psychological History: No Psychological Hx Reported Smoking Status: Current every day smoker Past Alcohol Use History: None Reported Past Drug Use History: None Reported - Past Family History Mother Family Medical History: Cancer Additional Family Medical History / Comment(s): Mother of lymphoma. Father Family Medical History: Coronary Artery Disease (CAD), Deep Vein Thrombosis (DVT) Additional Family Medical History / Comment(s): Father has had CABG General Exam Limitations: no limitations General appearance: alert, in no apparent distress Head exam: Present: atraumatic, normocephalic, normal inspection Eye exam: Present: normal appearance, PERRL, EOMI. Absent: scleral icterus, conjunctival injection, periorbital swelling ENT exam: Present: normal exam, mucous membranes moist Neck exam: Present: normal inspection. Absent: tenderness, meningismus, lymphadenopathy Respiratory exam: Present: normal lung sounds bilaterally. Absent: respiratory distress, wheezes, rales, rhonchi, stridor Cardiovascular Exam: Present: regular rate, normal rhythm, normal heart sounds. Absent: systolic murmur, diastolic murmur, rubs, gallop, clicks GI/Abdominal exam: Present: soft, normal bowel sounds. Absent: distended, tenderness, guarding, rebound, rigid Extremities exam: Present: normal inspection, full ROM, normal capillary refill. Absent: tenderness, pedal edema, joint swelling, calf tenderness Back exam: Present: normal inspection Neurological exam: Present: alert, oriented X3, CN II-XII intact Psychiatric exam: Present: normal affect, normal mood Skin exam: Present: warm, dry, intact, normal color. Absent: rash Course Vital Signs 07/13/20 07/13/20 07/13/20 00:57 01:28 02:02 Temperature 98.6 F Pulse Rate 92 64 Respiratory 18 16 18 Rate Blood Pressure 144/90 128/94 O2 Sat by Pulse 100 100 Oximetry - Reevaluation(s) Reevaluation #1: 07/13/20 03:05 Medical record is reviewed Reevaluation #2: 07/13/20 03:56 Spoke patient informed results and questions are answered Reevaluation #3: 07/13/20 03:56 Patient feels improved, okay for discharge Medical Decision Making - Medical Decision Making 65 male DF for evaluation patient states he has some shortness of breath that woke him from sleep and hasn't been feeling well but has no significant illness otherwise. Patient has normal testing here in the ER is without complaint can be discharged home - Lab Data Result diagrams: 07/13/20 01:15 07/13/20 01:15 Lab Results 07/13/20 07/13/20 07/13/20 Range/Units 01:15 01:15 01:15 WBC 11.7 H (3.8-10.6) k/uL RBC 5.42 (4.30-5.90) m/uL Hgb 16.9 (13.0-17.5) gm/dL Hct 49.7 (39.0-53.0) % MCV 91.8 (80.0-100.0) fL MCH 31.2 (25.0-35.0) pg MCHC 33.9 (31.0-37.0) g/dL RDW 13.3 (11.5-15.5) % Plt Count 250 (150-450) k/uL MPV 9.1 Neutrophils % 67 % Lymphocytes % 24 % Monocytes % 6 % Eosinophils % 1 % Basophils % 1 % Neutrophils # 7.9 H (1.3-7.7) k/uL Lymphocytes # 2.8 (1.0-4.8) k/uL Monocytes # 0.7 (0-1.0) k/uL Eosinophils # 0.1 (0-0.7) k/uL Basophils # 0.1 (0-0.2) k/uL PT 9.9 (9.0-12.0) sec INR 0.9 (<1.2) APTT 22.1 (22.0-30.0) sec Sodium 137 (137-145) mmol/L Potassium 3.9 (3.5-5.1) mmol/L Chloride 100 (98-107) mmol/L Carbon Dioxide 23 (22-30) mmol/L Anion Gap 14 mmol/L BUN 26 H (9-20) mg/dL Creatinine 1.13 (0.66-1.25) mg/dL Est GFR (CKD-EPI)AfAm 80 (>60 ml/min/1.73 sqM) Est GFR (CKD-EPI)NonAf 69 (>60 ml/min/1.73 sqM) Glucose 124 H (74-99) mg/dL Lactic Ac Sepsis Rflx Plasma Lactic Acid Marco (0.7-2.0) mmol/L Calcium 9.5 (8.4-10.2) mg/dL Magnesium 1.9 (1.6-2.3) mg/dL Total Bilirubin 0.4 (0.2-1.3) mg/dL AST 18 (17-59) U/L ALT 19 (4-49) U/L Alkaline Phosphatase 77 (38-126) U/L Lactate Dehydrogenase 344 (313-618) U/L C-Reactive Protein <5.0 (<10.0) mg/L Total Protein 7.6 (6.3-8.2) g/dL Albumin 4.4 (3.5-5.0) g/dL Coronavirus (PCR) (Not Detectd) 07/13/20 07/13/20 07/13/20 Range/Units 01:15 01:41 03:24 WBC (3.8-10.6) k/uL RBC (4.30-5.90) m/uL Hgb (13.0-17.5) gm/dL Hct (39.0-53.0) % MCV (80.0-100.0) fL MCH (25.0-35.0) pg MCHC (31.0-37.0) g/dL RDW (11.5-15.5) % Plt Count (150-450) k/uL MPV Neutrophils % % Lymphocytes % % Monocytes % % Eosinophils % % Basophils % % Neutrophils # (1.3-7.7) k/uL Lymphocytes # (1.0-4.8) k/uL Monocytes # (0-1.0) k/uL Eosinophils # (0-0.7) k/uL Basophils # (0-0.2) k/uL PT (9.0-12.0) sec INR (<1.2) APTT (22.0-30.0) sec Sodium (137-145) mmol/L Potassium (3.5-5.1) mmol/L Chloride (98-107) mmol/L Carbon Dioxide (22-30) mmol/L Anion Gap mmol/L BUN (9-20) mg/dL Creatinine (0.66-1.25) mg/dL Est GFR (CKD-EPI)AfAm (>60 ml/min/1.73 sqM) Est GFR (CKD-EPI)NonAf (>60 ml/min/1.73 sqM) Glucose (74-99) mg/dL Lactic Ac Sepsis Rflx Y Plasma Lactic Acid Marco 3.2 H* (0.7-2.0) mmol/L Calcium (8.4-10.2) mg/dL Magnesium (1.6-2.3) mg/dL Total Bilirubin (0.2-1.3) mg/dL AST (17-59) U/L ALT (4-49) U/L Alkaline Phosphatase (38-126) U/L Lactate Dehydrogenase (313-618) U/L C-Reactive Protein (<10.0) mg/L Total Protein (6.3-8.2) g/dL Albumin (3.5-5.0) g/dL Coronavirus (PCR) Not Detected (Not Detectd) - EKG Data -: EKG Interpreted by Me (EKG shows sinus rhythm 93 CA 1:30 QRS 90 QTC 435) - Radiology Data Radiology results: report reviewed (Chest x-ray and CT chest is negative for acute disease), image reviewed Disposition Clinical Impression: Acute exacerbation of chronic obstructive pulmonary disease Disposition: HOME SELF-CARE Condition: Good Instructions (If sedation given, give patient instructions): Acute Bronchitis (ED), Bronchospasm (ED) Is patient prescribed a controlled substance at d/c from ED?: No Referrals: Pacheco Louis DO [Primary Care Provider] - 1-2 days
[2020-07-13 01:28] LABS: Basophils # (A) 0.1 k/uL (0-0.2); Basophils % (A) 1 %; Eosinophils # (A) 0.1 k/uL (0-0.7); Eosinophils % (A) 1 %; HCT 49.7 % (39.0-53.0); HGB 16.9 gm/dL (13.0-17.5); Lymphocytes # (A) 2.8 k/uL (1.0-4.8); Lymphocytes % (A) 24 %; MCH 31.2 pg (25.0-35.0); MCHC 33.9 g/dL (31.0-37.0); MCV 91.8 fL (80.0-100.0); Mean Platelet Volume 9.1; Monocytes # (A) 0.7 k/uL (0-1.0); Monocytes % (A) 6 %; Neutrophils # (A) 7.9 k/uL (1.3-7.7); Neutrophils % (A) 67 %; Platelet Count 250 k/uL (150-450); RBC 5.42 m/uL (4.30-5.90); RDW 13.3 % (11.5-15.5); WBC 11.7 k/uL (3.8-10.6)
--- NOTE | 2020-07-13 01:35 | XR ---
EXAM: XR Chest, 1 View CLINICAL HISTORY: ITS.REASON XR Reason: Suspected COVID-19 pneumonia TECHNIQUE: Frontal view of the chest. COMPARISON: No relevant prior studies available. FINDINGS: Lungs: Emphysema. No airspace consolidation. Pleural space: Unremarkable. No pleural effusion or pneumothorax. Heart: Unremarkable. No cardiomegaly or pulmonary vascular congestion. Mediastinum: Unremarkable. Bones/joints: Unremarkable. IMPRESSION: No acute cardiopulmonary disease.
[2020-07-13 01:39] LABS: ALT 19 U/L (4-49); AST 18 U/L (17-59); African American GFR (CKD) 80 (>60 ml/min/1.73 sqM); Albumin 4.4 g/dL (3.5-5.0); Alkaline Phosphatase 77 U/L (38-126); Anion Gap 14 mmol/L; Blood Urea Nitrogen 26 mg/dL (9-20); C Reactive Protein <5.0 mg/L (<10.0); Calcium 9.5 mg/dL (8.4-10.2); Carbon Dioxide 23 mmol/L (22-30); Chloride 100 mmol/L (98-107); Glucose 124 mg/dL (74-99); LDH 344 U/L (313-618); Magnesium 1.9 mg/dL (1.6-2.3); Non-African American GFR(CKD) 69 (>60 ml/min/1.73 sqM); Potassium 3.9 mmol/L (3.5-5.1); Sodium 137 mmol/L (137-145); Total Bilirubin 0.4 mg/dL (0.2-1.3); Total Protein 7.6 g/dL (6.3-8.2)
[2020-07-13 01:40] LABS: INR 0.9 (<1.2); Partial Thromboplastin Time 22.1 sec (22.0-30.0); Prothrombin Time 9.9 sec (9.0-12.0)
[2020-07-13] MEDS ORDERED: SODIUM CHLORIDE 0.9% 1,000 ML IV STA ×2 (03:04)
[2020-07-13] MEDS ORDERED: SODIUM CHLORIDE 0.9% 500 ML 500 ML IV STA (03:04)
--- NOTE | 2020-07-13 03:35 | CT ---
EXAM: CT Angiography Chest With Intravenous Contrast CLINICAL HISTORY: ITS.REASON CT Reason: PE TECHNIQUE: Axial computed tomographic angiography images of the chest with intravenous contrast. CTDI is 16.87 mGy and DLP is 311.5 mGy-cm. This CT exam was performed using one or more of the following dose reduction techniques: automated exposure control, adjustment of the mA and/or kV according to patient size, and/or use of iterative reconstruction technique. MIP reconstructed images were created and reviewed. COMPARISON: 07/13/2020 FINDINGS: Pulmonary arteries: No filling defects. Aorta: No thoracic aortic aneurysm. Lungs: No consolidation. Moderate paraseptal emphysema/mild centrilobular emphysema. 3 mm micronodule in the right lower lobe. Pleural space: No pneumothorax. No effusion. Heart: No cardiomegaly. No pericardial effusion. Bones/joints: No acute fracture or dislocation. Soft tissues: Mild hiatal hernia. Calcified subcentimeter nodule in the left thyroid gland. Noncalcified subcentimeter nodule in the right thyroid gland. Lymph nodes: No enlarged lymph nodes. IMPRESSION: 1. No pulmonary embolism. 2. Mild/moderate COPD. 3. 3 mm micronodule in the right lower lobe. (Series 401 image 110). Fleishner Society Guideline 2017: Solitary nodule size: <6 mm -low-risk patients: no follow-up needed -high-risk patients: optional CT at 12 months EXCLUSIONS: 1. Patients aged 35 years or younger 2. Patients with known malignancy 3. Immunocompromised patients 4. Lung cancer screening population Low-risk patients: a minimal or absent history of smoking and or other known risk factors High-risk patients: a history of smoking or of other known risk factors (e.g. first degree relative with lung cancer, or exposure to asbestos, radon, uranium).
[2020-07-13 04:25] VITALS: BP 150/87; PULSE 57; RESP 16
== END 2020-07-13 04:25 | disposition home or self-care (01) ==
LOC: EC 00:55
DX: J44.1 Chronic obstructive pulmonary disease with (acute) exacerbation (principal); I10 Essential (primary) hypertension; F17.200 Nicotine dependence, unspecified, uncomplicated; Z20.822 Contact with and (suspected) exposure to COVID-19; Z79.899 Other long term (current) drug therapy
CPT/HCPCS: 36415; 93005; 83880; 80053; 83605; 83615; 83735; 85025; 85610; 85730; 86140; 87635; 71045; 71275; 99285; 96360; Q9967

== ENCOUNTER 2020-07-18 15:27 | Emergency (ER) | payer OTHER ==
[2020-07-18 15:34] VITALS: TEMP 97.9
[2020-07-18] MEDS ORDERED: SODIUM CHLORIDE 0.9% 1,000 ML IV STA (15:58)
--- NOTE | 2020-07-18 16:10 | ED ---
Abdominal Pain HPI - General Chief Complaint: Abdominal Pain Stated Complaint: Abd Pain Time Seen by Provider: 07/18/20 15:35 Source: patient Mode of arrival: ambulatory Limitations: no limitations - History of Present Illness Initial Comments: 65-year-old male with history of diverticulitis presents emergency Department with chief complaint abdominal pain. Patient reports having some lower abdominal pain that comes and goes. Patient reports feeling "gassy" andfeeling bloated. Reports the pain comes and goes and is not postprandial. Denies any s ignificant pain at this time. he does report history of diverticulitis and states this feels like it. Denies any back pain, chest pain or shortness of breath. Denies any urinary or vaginal symptoms. Denies history of abdominal surgical history. Denies taking medication to alleviate the symptoms. - Related Data Home Medications Medication Instructions Recorded Confirmed Multivitamins, Thera [Multivitamin 1 tab PO DAILY 08/20/15 07/18/20 (formulary)] Losartan-Hctz 50-12.5 mg [Hyzaar 1 tab PO DAILY 07/25/19 07/18/20 50-12.5] Aspirin EC [Ecotrin Low Dose] 81 mg PO DAILY 07/18/20 07/18/20 Cholecalciferol [Vitamin D3 (25 25 mcg PO DAILY 07/18/20 07/18/20 Mcg = 1000 Iu)] Sulfamethoxazole/Trimethoprim 1 tab PO BID 07/18/20 07/18/20 [Sulfamethoxazole-Tmp Ds Tablet] Allergies Allergy/AdvReac Type Severity Reaction Status Date / Time amoxicillin [From Augmentin] AdvReac Nausea & Verified 07/18/20 18:19 Vomiting clavulanic acid AdvReac Nausea & Verified 07/18/20 18:19 [From Augmentin] Vomiting Review of Systems ROS Statement: Those systems with pertinent positive or pertinent negative responses have been documented in the HPI. ROS Other: All systems not noted in ROS Statement are negative. Past Medical History Past Medical History: Hypertension Additional Past Medical History / Comment(s): Recent bronchitis, hx [place] Palsy, Diverticulosis History of Any Multi-Drug Resistant Organisms: None Reported Past Surgical History: Appendectomy, Tonsillectomy Additional Past Surgical History / Comment(s): 2016 colonoscopy, tumor removed from rt side lower back. Past Anesthesia/Blood Transfusion Reactions: No Reported Reaction Past Psychological History: No Psychological Hx Reported Smoking Status: Current every day smoker Past Alcohol Use History: None Reported Past Drug Use History: None Reported - Past Family History Mother Family Medical History: Cancer Additional Family Medical History / Comment(s): Mother of lymphoma. Father Family Medical History: Coronary Artery Disease (CAD), Deep Vein Thrombosis (DVT) Additional Family Medical History / Comment(s): Father has had CABG General Exam Limitations: no limitations General appearance: alert, in no apparent distress Head exam: Present: atraumatic, normocephalic, normal inspection Eye exam: Present: normal appearance, PERRL, EOMI Pupils: Present: normal accommodation ENT exam: Present: normal exam, normal oropharynx, mucous membranes moist Neck exam: Present: normal inspection, full ROM. Absent: tenderness Respiratory exam: Present: normal lung sounds bilaterally. Absent: respiratory distress Cardiovascular Exam: Present: regular rate, normal rhythm, normal heart sounds GI/Abdominal exam: Present: soft, tenderness (mild left lower quadrant suprapubic tenderness). Absent: distended, guarding, rebound Extremities exam: Present: normal inspection, full ROM, normal capillary refill, other (palpable DP and PT bilaterally.). Absent: tenderness, pedal edema, joint swelling, calf tenderness Back exam: Present: normal inspection, full ROM. Absent: tenderness, CVA tenderness (R), CVA tenderness (L) Neurological exam: Present: alert, oriented X3, CN II-XII intact Psychiatric exam: Present: normal affect, normal mood Skin exam: Present: warm, dry, intact, normal color Course Vital Signs 07/18/20 07/18/20 07/18/20 15:30 16:30 17:37 Temperature 97.9 F Pulse Rate 111 H 72 68 Respiratory 18 20 20 Rate Blood Pressure 119/86 110/76 105/73 O2 Sat by Pulse 99 94 L 95 Oximetry Medical Decision Making - Medical Decision Making 65-year-old male presents to the emergency department with a chief complaint of abdominal discomfort. On physical examination, patient has mild lower abdominal left lower quadrant tenderness. Patient denies significant pain but is more concerned for feeling bloated and gassy. I did offer of analgesia, he declined. I did give the patient 1 L IV bolus fluids with some improvement in sympt oms.CBC is unremarkable. CMP reveals elevated BUN of 24 and creatinine of 1.43. these are both increased compared to last laboratory work. UA shows 1+ ketones .I do suspect dehydration in this patient. .CT of abdomen and pelvis reveals no acute abnormalities. There is some arthrosclerotic vascular disease.there is also clearing of the inflammatory changes and a 2 cm cystic fluid collection compared to old exam. There is sigmoid diverticulosis without diverticulitis. patient was also concerned of not having bowel movements for several days. Advise him to take prune juice and MiraLAX. Advise him to eat a high-fiber diet. Advised him to follow with a GI specialist. Return parameters several discussed the patient was attending group. Case discussed withDr. Bee - Lab Data Result diagrams: 07/18/20 16:03 07/18/20 16:03 Lab Results 07/18/20 07/18/20 07/18/20 Range/Units 16:03 16:03 16:03 WBC 8.4 (3.8-10.6) k/uL RBC 5.66 (4.30-5.90) m/uL Hgb 17.7 H (13.0-17.5) gm/dL Hct 51.2 (39.0-53.0) % MCV 90.4 (80.0-100.0) fL MCH 31.2 (25.0-35.0) pg MCHC 34.5 (31.0-37.0) g/dL RDW 12.6 (11.5-15.5) % Plt Count 270 (150-450) k/uL MPV 8.7 Neutrophils % 69 % Lymphocytes % 22 % Monocytes % 6 % Eosinophils % 1 % Basophils % 1 % Neutrophils # 5.8 (1.3-7.7) k/uL Lymphocytes # 1.8 (1.0-4.8) k/uL Monocytes # 0.5 (0-1.0) k/uL Eosinophils # 0.1 (0-0.7) k/uL Basophils # 0.1 (0-0.2) k/uL Sodium 134 L (137-145) mmol/L Potassium 3.7 (3.5-5.1) mmol/L Chloride 98 (98-107) mmol/L Carbon Dioxide 23 (22-30) mmol/L Anion Gap 13 mmol/L BUN 24 H (9-20) mg/dL Creatinine 1.44 H (0.66-1.25) mg/dL Est GFR (CKD-EPI)AfAm 59 (>60 ml/min/1.73 sqM) Est GFR (CKD-EPI)NonAf 51 (>60 ml/min/1.73 sqM) Glucose 126 H (74-99) mg/dL Plasma Lactic Acid Marco 1.9 (0.7-2.0) mmol/L Calcium 10.1 (8.4-10.2) mg/dL Total Bilirubin 0.9 (0.2-1.3) mg/dL AST 21 (17-59) U/L ALT 20 (4-49) U/L Alkaline Phosphatase 76 (38-126) U/L Total Protein 8.1 (6.3-8.2) g/dL Albumin 4.7 (3.5-5.0) g/dL Amylase 68 (30-110) U/L Lipase 181 (23-300) U/L Urine Color Urine Appearance (Clear) Urine pH (5.0-8.0) Ur Specific Babb (1.001-1.035) Urine Protein (Negative) Urine Glucose (UA) (Negative) Urine Ketones (Negative) Urine Blood (Negative) Urine Nitrite (Negative) Urine Bilirubin (Negative) Urine Urobilinogen (<2.0) mg/dL Ur Leukocyte Esterase (Negative) 07/18/20 Range/Units 18:31 WBC (3.8-10.6) k/uL RBC (4.30-5.90) m/uL Hgb (13.0-17.5) gm/dL Hct (39.0-53.0) % MCV (80.0-100.0) fL MCH (25.0-35.0) pg MCHC (31.0-37.0) g/dL RDW (11.5-15.5) % Plt Count (150-450) k/uL MPV Neutrophils % % Lymphocytes % % Monocytes % % Eosinophils % % Basophils % % Neutrophils # (1.3-7.7) k/uL Lymphocytes # (1.0-4.8) k/uL Monocytes # (0-1.0) k/uL Eosinophils # (0-0.7) k/uL Basophils # (0-0.2) k/uL Sodium (137-145) mmol/L Potassium (3.5-5.1) mmol/L Chloride (98-107) mmol/L Carbon Dioxide (22-30) mmol/L Anion Gap mmol/L BUN (9-20) mg/dL Creatinine (0.66-1.25) mg/dL Est GFR (CKD-EPI)AfAm (>60 ml/min/1.73 sqM) Est GFR (CKD-EPI)NonAf (>60 ml/min/1.73 sqM) Glucose (74-99) mg/dL Plasma Lactic Acid Marco (0.7-2.0) mmol/L Calcium (8.4-10.2) mg/dL Total Bilirubin (0.2-1.3) mg/dL AST (17-59) U/L ALT (4-49) U/L Alkaline Phosphatase (38-126) U/L Total Protein (6.3-8.2) g/dL Albumin (3.5-5.0) g/dL Amylase (30-110) U/L Lipase (23-300) U/L Urine Color Light Yellow Urine Appearance Clear (Clear) Urine pH 6.5 (5.0-8.0) Ur Specific Babb >1.050 H (1.001-1.035) Urine Protein Negative (Negative) Urine Glucose (UA) Negative (Negative) Urine Ketones 1+ H (Negative) Urine Blood Negative (Negative) Urine Nitrite Negative (Negative) Urine Bilirubin Negative (Negative) Urine Urobilinogen <2.0 (<2.0) mg/dL Ur Leukocyte Esterase Negative (Negative) Disposition Clinical Impression: Abdominal pain, Abdominal bloating Disposition: HOME SELF-CARE Condition: Stable Instructions (If sedation given, give patient instructions): Gas and Bloating (ED) Additional Instructions: Drink prune juice and eako-dwo-ngremzo MiraLAX. You can also take a stool softener. Eat a high-fiber diet. Return to emergency department if symptoms worsen. follow up with a GI specialist. Is patient prescribed a controlled substance at d/c from ED?: No Referrals: Pacheco Louis DO [Primary Care Provider] - 1-2 days Zoey Rosales MD [STAFF PHYSICIAN] - 1-2 days Time of Disposition: 19:03
[2020-07-18 16:14] LABS: Basophils # (A) 0.1 k/uL (0-0.2); Basophils % (A) 1 %; Eosinophils # (A) 0.1 k/uL (0-0.7); Eosinophils % (A) 1 %; HCT 51.2 % (39.0-53.0); HGB 17.7 gm/dL (13.0-17.5); Lymphocytes # (A) 1.8 k/uL (1.0-4.8); Lymphocytes % (A) 22 %; MCH 31.2 pg (25.0-35.0); MCHC 34.5 g/dL (31.0-37.0); MCV 90.4 fL (80.0-100.0); Mean Platelet Volume 8.7; Monocytes # (A) 0.5 k/uL (0-1.0); Monocytes % (A) 6 %; Neutrophils # (A) 5.8 k/uL (1.3-7.7); Neutrophils % (A) 69 %; Platelet Count 270 k/uL (150-450); RBC 5.66 m/uL (4.30-5.90); RDW 12.6 % (11.5-15.5); WBC 8.4 k/uL (3.8-10.6)
[2020-07-18 16:23] LABS: Albumin 4.7 g/dL (3.5-5.0); Calcium 10.1 mg/dL (8.4-10.2); Potassium 3.7 mmol/L (3.5-5.1); Total Bilirubin 0.9 mg/dL (0.2-1.3); Total Protein 8.1 g/dL (6.3-8.2)
[2020-07-18 16:41] VITALS: RESP 20
--- NOTE | 2020-07-18 17:26 | CT ---
EXAMINATION TYPE: CT abdomen pelvis w con DATE OF EXAM: 07/18/2020 COMPARISON: 05/29/2016 HISTORY: LLQ pain with nausea CT DLP: 873.4 mGycm Automated exposure control for dose reduction was used. CONTRAST: Performed with IV Contrast, patient injected with 100 mL of Isovue 300. Images obtained from the diaphragm to the floor the pelvis with IV contrast. FINDINGS: Lung bases are clear. There is no pleural effusion. Heart size is normal. There is no pericardial eff usion. Liver spleen pancreas gallbladder stomach appear intact. Bile ducts are not dilated. There is very sm all hiatal hernia. There is no adrenal mass. Kidneys show satisfactory contrast opacification. There is no hydronephrosi s. Bladder distends smoothly. There is no inguinal hernia. There is no free fluid in the pelvis. There is no mesenteric edema. There is no ascites or free air. There is no bowel obstruction. There i s apparent clips from appendectomy. Lumbar vertebra have normal alignment. Disc spaces are fairly normal. Bony pelvis is intact. The hip joints are intact. IMPRESSION: No acute abnormality of abdomen and pelvis. There is some atherosclerotic vascular disease. There is clearing of the inflammatory changes and the 2 cm cystic fluid collection in the pelvis compared to o ld exam. There is sigmoid diverticulosis without diverticulitis.
[2020-07-18 17:41] VITALS: BP 105/73; PULSE 68
[2020-07-18 18:51] LABS: Appearance,Urine Clear (Clear); Bilirubin,Urine Negative (Negative); Blood,Urine Negative (Negative); Color,Urine Light Yellow; Glucose,Urine (UA) Negative (Negative); Ketones,Urine 1+ (Negative); Leukocyte Esterase,Urine Negative (Negative); Nitrite,Urine Negative (Negative); PH, Urine 6.5 (5.0-8.0); Protein,Urine Negative (Negative); Specific Gravity,Urine >1.050 (1.001-1.035); Urobilinogen,Urine <2.0 mg/dL (<2.0)
== END 2020-07-18 19:31 | disposition home or self-care (01) ==
LOC: EC 15:27
DX: R10.30 Lower abdominal pain, unspecified (principal); R14.0 Abdominal distension (gaseous); I10 Essential (primary) hypertension; F17.200 Nicotine dependence, unspecified, uncomplicated; Z79.82 Long term (current) use of aspirin; Z79.899 Other long term (current) drug therapy; Z88.0 Allergy status to penicillin; Z88.1 Allergy status to other antibiotic agents
CPT/HCPCS: 36415; 80053; 82150; 83605; 83690; 85025; 81003; 87040; 74177; 99284; 96360; 96361 ×2; Q9967; 93005

== ENCOUNTER 2021-06-15 14:56 | Emergency (ER) | payer OTHER ==
[2021-06-15 15:48] VITALS: TEMP 98.9
--- NOTE | 2021-06-15 17:48 | XR ---
EXAMINATION TYPE: XR chest 2V DATE OF EXAM: 06/15/2021 COMPARISON: 07/13/2020 HISTORY: Cough TECHNIQUE: 2 views FINDINGS: Heart is normal. Lungs are clear. Diaphragm is normal. There is no pulmonary consolidation. There is minimal pleural thickening at the lung apices. Bony thorax is intact. IMPRESSION: No active cardiopulmonary disease. No change.
[2021-06-15] MEDS ORDERED: LORATADINE 10 MG TAB PO STA (19:44)
[2021-06-15] MEDS ORDERED: dexAMETHasone 2 MG TAB PO STA (19:44)
--- NOTE | 2021-06-15 19:47 | ED ---
General Adult HPI - General Chief complaint: Shortness of Breath Stated complaint: chest congestion, throat pain Time Seen by Provider: 06/15/21 19:25 Source: patient, RN notes reviewed, old records reviewed Mode of arrival: ambulatory Limitations: no limitations - History of Present Illness Initial comments: Patient is a 65-year-old male with past medical history remarkable for hypertension, as well as recurrent sinus infections presents emergency Department complaining of a sinus infection. He has been following up with his PCP and call the office today is antibiotics he has been on doesn't seem to be helping. He denies any shortness of breath, but does endorse occasional sore throat. His primary complaint is sinus fullness and a feeling that he needs to blow his nose but nothing comes out when he blows. Denies any chest pain, abdominal pain, nausea, vomiting. His no neurological complaint at this time. He is currently on erythromycin and states he is ALLERGIC to Augmentin. Seeking evaluation and possible further treatment for his chronic sinus infections. Endorses no acute complaints at this time. I evaluated the patient when he was placed in a room. - Related Data Home Medications Medication Instructions Recorded Confirmed Losartan-Hctz 50-12.5 mg [Hyzaar 1 tab PO DAILY 07/25/19 06/15/21 50-12.5] Atorvastatin Calcium [Lipitor] 10 mg PO HS 06/15/21 06/15/21 Erythromycin Base [Erythromycin] 500 mg PO Q8H 06/15/21 06/15/21 Previous Rx's Medication Instructions Recorded Fluticasone Nasal [place] [Flonase 1 spray EA NOSTRIL DAILY #16 gm 06/15/21 Nasal [place]] predniSONE [Deltasone] 40 mg PO DAILY 5 Days #10 tab 06/15/21 Allergies Allergy/AdvReac Type Severity Reaction Status Date / Time amoxicillin [From Augmentin] AdvReac Nausea & Verified 06/15/21 19:47 Vomiting clavulanic acid AdvReac Nausea & Verified 06/15/21 19:47 [From Augmentin] Vomiting Review of Systems ROS Statement: Those systems with pertinent positive or pertinent negative responses have been documented in the HPI. Review of Systems: CONST: Denies fever EYES: Denies blurry vision ENT: Endorses nasal congestion, fullness C/V: Denies Chest pain RESP: Denies shortness of breath GI: Denies abdominal pain : Denies dysuria SKIN: Denies rash. MSK: Denies joint pain. NEURO: Denies headache ROS Other: All systems not noted in ROS Statement are negative. Past Medical History Past Medical History: Hypertension Additional Past Medical History / Comment(s): Recent bronchitis, hx [place] Palsy, Diverticulosis History of Any Multi-Drug Resistant Organisms: None Reported Past Surgical History: Appendectomy, Tonsillectomy Additional Past Surgical History / Comment(s): 2016 colonoscopy, tumor removed from rt side lower back. Past Anesthesia/Blood Transfusion Reactions: No Reported Reaction Past Psychological History: No Psychological Hx Reported Smoking Status: Current every day smoker Past Alcohol Use History: None Reported Past Drug Use History: None Reported - Past Family History Mother Family Medical History: Cancer Additional Family Medical History / Comment(s): Mother of lymphoma. Father Family Medical History: Coronary Artery Disease (CAD), Deep Vein Thrombosis (DVT) Additional Family Medical History / Comment(s): Father has had CABG General Exam - General Exam Comments Initial Comments: General: Appears in no acute distress. Is resting comfortably on the stretcher. HEAD: Normal with no signs of head trauma. EYES: PERRLA, EOMI, conjunctiva normal, no discharge. ENT: Hearing grossly intact, normal oropharynx. No sinus tenderness to palpation. Posterior oropharynx is unremarkable. No stridor auscultated. RESPIRATORY: Clear breath sounds bilaterally. No wheezes, rales, or rhonchi. No hypoxia. No increased work of breathing. C/V: Regular rate and rhythm. S1 and S2 auscultated, no edema, peripheral pulses 2+ and intact throughout ABD: Abd is soft, nontender, nondistended EXT: Normal range of motion, no obvious deformity SKIN: No rashes or lesions observed on exposed skin. NEURO: Alert and oriented 4. No focal deficits. Limitations: no limitations Course Vital Signs 06/15/21 06/15/21 06/15/21 15:44 19:45 19:52 Temperature 98.9 F Pulse Rate 128 H 98 Respiratory 18 20 18 Rate Blood Pressure 138/79 108/71 O2 Sat by Pulse 98 98 Oximetry Medical Decision Making - Medical Decision Making Based on the patient's presentation and physical exam, I do believe he is likely experiencing an acute on chronic sinus infection. He is currently still on antibiotics which she was just started on. I advised that he continue using the erythromycin. I can offer him steroids as well as an antihistamine at this time. He states he will use Sol at home but is opens receiving Claritin here in the department which I will provide. He will also receive prescription for Flonase as well as prednisone. I will provide him with a one-time dose of D ecadron here in the department. He was in agreement this plan. I do not believe that he requires any laboratory studies or imaging at this time as he is nontoxic-appearing with no acute complaints at this time. Exam is unremarkable. COVID-19 swab and chest x-ray were obtained in triage. Covid swab was negative and chest x-ray was unremarkable and showed no acute cardio pulmonary process. He was in agreement with follow-up and I will provide him with contact information for ENT. I will provide the patient with a prescription for prednisone 40 mg daily for 5 days, Flonase. I instructed the patient to follow up with their PCP in the next 3 days. I provided contact information for follow up with Dr. Barroso of ENT. I explained that the patient should return to the emergency department if they experience any worsening symptoms. Strict return precautions were discussed with the patient. The patient expressed understanding of these instructions. I answered all questions that the patient had. The patient was discharged home in. Condition with their prescriptions and follow up information. - Lab Data Lab Results 06/15/21 Range/Units 15:49 Coronavirus (PCR) Not Detected (Not Detectd) Disposition Clinical Impression: Sinus infection Disposition: HOME SELF-CARE Condition: Good Instructions (If sedation given, give patient instructions): Sinusitis (ED) Prescriptions: predniSONE [Deltasone] 40 mg PO DAILY 5 Days #10 tab Fluticasone Nasal [place] [Flonase Nasal [place]] 1 spray EA NOSTRIL DAILY #16 gm Is patient prescribed a controlled substance at d/c from ED?: No Referrals: Pacheco Louis DO [Primary Care Provider] - 1-2 days Remi Barroso MD [STAFF PHYSICIAN] - 1-2 days
[2021-06-15 19:53] VITALS: BP 108/71; PULSE 98; RESP 18
== END 2021-06-15 19:59 | disposition home or self-care (01) ==
LOC: EC 14:56
DX: J32.9 Chronic sinusitis, unspecified (principal); I10 Essential (primary) hypertension; F17.200 Nicotine dependence, unspecified, uncomplicated; Z79.899 Other long term (current) drug therapy
CPT/HCPCS: 87635; 71046; 99284; J8540

== ENCOUNTER → 2021-07-22 | Outpatient (CLI) | payer OTHER ==
--- NOTE | 2021-07-22 09:53 | CT ---
EXAMINATION TYPE: CT sinus wo con DATE OF EXAM: 07/22/2021 COMPARISON: CT brain July 25, 2019 HISTORY: sinusitis CT DLP: 583.7 mGycm. Automated Exposure Control for Dose Reduction was Utilized. TECHNIQUE: CT scan of the sinuses is performed without contrast, axial images are obtained, coronal r eformatted images are also reviewed. FINDINGS: There is opacification of the ethmoid sinuses bilaterally redemonstrated and more prominent from 2020. There is 4 mm oval ossific density on the right axial image 35 consistent with small oste france. There is anterior protrusion into the right frontal sinus with opacification redemonstrated. Inc reasing opacification in the left sphenoid sinus. Nasal septum remains deviated to left of midline. T here is patent right ostiomeatal complex coronal image 22. Left side appears occluded superiorly jocelyn nal image 26. Visualized portion of mastoid air cells show no abnormal opacification. Some degree of posterior cer umen is suspected bilaterally. The globes are intact bilaterally. Visualized brain parenchyma shows diffuse age-related cerebral atrophy. There is 1.0 cm oval lesion right scalp axial image 65 redemons trated presumed benign such as sebaceous cyst. IMPRESSION: Worsening bilateral ethmoid sinus and left frontal sinus disease. Occluded left sided os tiomeatal complex now present.
== END | disposition home or self-care (01) ==
LOC: RADCTMAIN 09:25
PROVIDERS: ATTEND Otolaryngology
DX: J32.1 Chronic frontal sinusitis (principal); J32.2 Chronic ethmoidal sinusitis
CPT/HCPCS: 70486

== ENCOUNTER 2021-08-31 21:01 | Observation (INO) | payer OTHER ==
[2021-08-31] MEDS ORDERED: SODIUM CHLORIDE 0.9% 1,000 ML IV STA (22:03)
[2021-08-31] MEDS ORDERED: ASPIRIN 81 MG PO STA (22:03)
--- NOTE | 2021-08-31 22:16 | XR ---
EXAMINATION TYPE: XR chest 2V DATE OF EXAM: 08/31/2021 COMPARISON: 06/15/2021 HISTORY: Chest pain TECHNIQUE: FINDINGS: Heart is normal. Lungs are clear of consolidation. There is mild pleural thickening and sca rring at the lung apices. There are no hilar masses. There are chest leads. Costophrenic angles are c lear. Thoracic spine appears intact. IMPRESSION: No active cardiopulmonary disease. No change.
[2021-08-31 22:27] LABS: Basophils # (A) 0.1 k/uL (0-0.2); Basophils % (A) 1 %; Eosinophils # (A) 0.1 k/uL (0-0.7); Eosinophils % (A) 0 %; HCT 49.4 % (39.0-53.0); HGB 16.7 gm/dL (13.0-17.5); Lymphocytes # (A) 1.6 k/uL (1.0-4.8); Lymphocytes % (A) 14 %; MCH 31.6 pg (25.0-35.0); MCHC 33.8 g/dL (31.0-37.0); MCV 93.5 fL (80.0-100.0); Mean Platelet Volume 9.4; Monocytes # (A) 0.7 k/uL (0-1.0); Monocytes % (A) 7 %; Neutrophils # (A) 8.8 k/uL (1.3-7.7); Neutrophils % (A) 77 %; Platelet Count 234 k/uL (150-450); RBC 5.28 m/uL (4.30-5.90); RDW 12.6 % (11.5-15.5); WBC 11.4 k/uL (3.8-10.6)
[2021-08-31 22:31] LABS: Albumin 4.4 g/dL (3.5-5.0); Calcium 9.2 mg/dL (8.4-10.2); Potassium 4.2 mmol/L (3.5-5.1); Total Bilirubin 0.5 mg/dL (0.2-1.3); Total Protein 7.5 g/dL (6.3-8.2)
[2021-08-31 22:39] LABS: INR 0.9 (<1.2); Partial Thromboplastin Time 22.3 sec (22.0-30.0); Prothrombin Time 9.7 sec (9.0-12.0)
[2021-08-31] MEDS ORDERED: KETOROLAC 15 MG/ML 1 ML VIAL IVP STA (23:27)
[2021-08-31] MEDS ORDERED: SODIUM CHLORIDE 0.9% 1,000 ML IV SCH (23:45)
[2021-08-31] MEDS ORDERED: NALOXONE 0.4 MG/ML 1 ML VIAL IV PRN (23:51)
[2021-08-31] MEDS ORDERED: ONDANSETRON 4 MG/2 ML VIAL IVP PRN (23:51)
[2021-08-31] MEDS ORDERED: KETOROLAC 15 MG/ML 1 ML VIAL IVP PRN (23:51)
--- NOTE | 2021-09-01 00:01 | ED ---
General Adult HPI - General Chief complaint: Arrhythmia/Palpitations Stated complaint: Increased heart rate, headache Time Seen by Provider: 08/31/21 21:41 Source: patient, RN notes reviewed, old records reviewed Mode of arrival: wheelchair - History of Present Illness Initial comments: Patient is a 66-year-old male who presents emergency Department multiple complaints. Primary complaint is weakness has been ongoing for at least a week but likely longer. He also endorses intermittent increased heart rates, as well as a mild headache at this time. Is concerned regarding his heart and states he feels like "one of my carotid arteries must be clogged." Denies any sick con tacts, fevers, chills, cough. Denies any nausea, vomiting, abdominal pain. Has no urinary complaints. States he felt lightheaded earlier. Lives alone. His no other acute complaints at this time. Presents over concern for his current complaints, all of which have been going for at least a day. Does endorse occasional chest pressure, also going on intermittently but only since this morning. Denies shortness of breath. States he feels like he needs to be evaluated. Has no specific cause for his complaints at this time. Denies any drug or alcohol use.Patient does endorse a mild tension-like headache that may be due to sinus pressure. - Related Data Home Medications Medication Instructions Recorded Confirmed Losartan-Hctz 50-12.5 mg [Hyzaar 1 tab PO DAILY 07/25/19 06/15/21 50-12.5] Atorvastatin Calcium [Lipitor] 10 mg PO HS 06/15/21 06/15/21 Erythromycin Base [Erythromycin] 500 mg PO Q8H 06/15/21 06/15/21 Previous Rx's Medication Instructions Recorded Fluticasone Nasal [place] [Flonase 1 spray EA NOSTRIL DAILY #16 gm 06/15/21 Nasal [place]] predniSONE [Deltasone] 40 mg PO DAILY 5 Days #10 tab 06/15/21 Allergies Allergy/AdvReac Type Severity Reaction Status Date / Time amoxicillin [From Augmentin] AdvReac Nausea & Verified 08/31/21 21:26 Vomiting clavulanic acid AdvReac Nausea & Verified 08/31/21 21:26 [From Augmentin] Vomiting Review of Systems ROS Statement: Those systems with pertinent positive or pertinent negative responses have been documented in the HPI. Review of Systems: CONST: Denies fever EYES: Denies blurry vision ENT: Denies nasal congestion C/V: Endorses one day of chest pressure RESP: Denies shortness of breath GI: Denies abdominal pain : Denies dysuria SKIN: Denies rash. MSK: Denies joint pain. NEURO: Endorses mild headache ROS Other: All systems not noted in ROS Statement are negative. 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 Past Anesthesia/Blood Transfusion Reactions: No Reported Reaction Past Psychological History: No Psychological Hx Reported Smoking Status: Current every day smoker Past Alcohol Use History: None Reported Past Drug Use History: None Reported - Past Family History Mother Family Medical History: Cancer Additional Family Medical History / Comment(s): Mother of lymphoma. Father Family Medical History: Coronary Artery Disease (CAD), Deep Vein Thrombosis (DVT) Additional Family Medical History / Comment(s): Father has had CABG General Exam - General Exam Comments Initial Comments: General: Appears in no acute distress. HEAD: Normal with no signs of head trauma. EYES: PERRLA, EOMI, conjunctiva normal, no discharge. Pupils are 3 mm equal bilaterally. ENT: Hearing grossly intact, normal oropharynx. No sinus tenderness to palpation. RESPIRATORY: Clear breath sounds bilaterally. No wheezes, rales, or rhonchi. C/V: Regular rate and rhythm. S1 and S2 auscultated, no edema, peripheral pulses 2+ and intact throughout. Patient was tachycardic in triage, but this is since resolved. ABD: Abd is soft, nontender, nondistended EXT: Normal range of motion, no obvious deformity SKIN: No rashes or lesions observed on exposed skin. NEURO: Alert and oriented x 4. Cranial nerves II-XII intact. No focal sensory or strength deficits. NIH is 0. GCS is 15. Course Vital Signs 08/31/21 21:21 Temperature 98 F Pulse Rate 114 H Respiratory 19 Rate Blood Pressure 120/75 O2 Sat by Pulse 99 Oximetry Medical Decision Making - Medical Decision Making Based on the patient's presentation and physical exam, he is presenting for weakness of unknown etiology as well as mild headache. Intermittent he also has chest pressure which has been ongoing for altered today. We will obtain a broad workup, including infectious and cardiac. Patient was in agreement this plan. He will be given a 1 L fluid bolus as well as an aspirin. EKG showed no signs of acute ischemia. Chest x-ray revealed no acute cardiopulmonary process. Laboratory studies are remarkable for an undetectable troponin, normal BNP, and undetectable d-dimer, negative Covid and flu testing. Patient is a very mild leukocytosis of 11.4. On reevaluation, patient still feeling weak. He is convinced something is wrong. He would like to stay overnight if possible for continued monitoring. He does live at home alone. I will admitted to observation telemetry for further monitoring. Urinalysis and TSH are still pending at this time. We'll continue IV fluids at this time. I spoke with the admitting team under Dr. Sampson who accepted the patient. Patient was complaining of return of his mild headache and therefore he'll be given the remainder of the migraine cocktail. He was in agreement this plan.Patient's tachycardia resolved throughout his stay in the emergency department. Vital signs remained within normal limits and stable otherwise. - Lab Data Result diagrams: 08/31/21 22:11 08/31/21 22:11 Lab Results 08/31/21 08/31/21 08/31/21 Range/Units 22:11 22:11 22:11 WBC 11.4 H (3.8-10.6) k/uL RBC 5.28 (4.30-5.90) m/uL Hgb 16.7 (13.0-17.5) gm/dL Hct 49.4 (39.0-53.0) % MCV 93.5 (80.0-100.0) fL MCH 31.6 (25.0-35.0) pg MCHC 33.8 (31.0-37.0) g/dL RDW 12.6 (11.5-15.5) % Plt Count 234 (150-450) k/uL MPV 9.4 Neutrophils % 77 % Lymphocytes % 14 % Monocytes % 7 % Eosinophils % 0 % Basophils % 1 % Neutrophils # 8.8 H (1.3-7.7) k/uL Lymphocytes # 1.6 (1.0-4.8) k/uL Monocytes # 0.7 (0-1.0) k/uL Eosinophils # 0.1 (0-0.7) k/uL Basophils # 0.1 (0-0.2) k/uL PT 9.7 (9.0-12.0) sec INR 0.9 (<1.2) APTT 22.3 (22.0-30.0) sec D-Dimer <0.17 (<0.60) mg/L FEU Sodium 135 L (137-145) mmol/L Potassium 4.2 (3.5-5.1) mmol/L Chloride 103 (98-107) mmol/L Carbon Dioxide 21 L (22-30) mmol/L Anion Gap 11 mmol/L BUN 29 H (9-20) mg/dL Creatinine 1.10 (0.66-1.25) mg/dL Est GFR (CKD-EPI)AfAm 82 (>60 ml/min/1.73 sqM) Est GFR (CKD-EPI)NonAf 71 (>60 ml/min/1.73 sqM) Glucose 117 H (74-99) mg/dL Calcium 9.2 (8.4-10.2) mg/dL Magnesium 2.0 (1.6-2.3) mg/dL Total Bilirubin 0.5 (0.2-1.3) mg/dL AST 22 (17-59) U/L ALT 22 (4-49) U/L Alkaline Phosphatase 71 (38-126) U/L Troponin I (0.000-0.034) ng/mL NT-Pro-B Natriuret Pep pg/mL Total Protein 7.5 (6.3-8.2) g/dL Albumin 4.4 (3.5-5.0) g/dL Amylase 82 (30-110) U/L Lipase 206 (23-300) U/L Coronavirus (PCR) (Not Detectd) Influenza Type A RNA (Not Detectd) Influenza Type B (PCR) (Not Detectd) 08/31/21 08/31/21 08/31/21 Range/Units 22:11 22:11 22:21 WBC (3.8-10.6) k/uL RBC (4.30-5.90) m/uL Hgb (13.0-17.5) gm/dL Hct (39.0-53.0) % MCV (80.0-100.0) fL MCH (25.0-35.0) pg MCHC (31.0-37.0) g/dL RDW (11.5-15.5) % Plt Count (150-450) k/uL MPV Neutrophils % % Lymphocytes % % Monocytes % % Eosinophils % % Basophils % % Neutrophils # (1.3-7.7) k/uL Lymphocytes # (1.0-4.8) k/uL Monocytes # (0-1.0) k/uL Eosinophils # (0-0.7) k/uL Basophils # (0-0.2) k/uL PT (9.0-12.0) sec INR (<1.2) APTT (22.0-30.0) sec D-Dimer (<0.60) mg/L FEU Sodium (137-145) mmol/L Potassium (3.5-5.1) mmol/L Chloride (98-107) mmol/L Carbon Dioxide (22-30) mmol/L Anion Gap mmol/L BUN (9-20) mg/dL Creatinine (0.66-1.25) mg/dL Est GFR (CKD-EPI)AfAm (>60 ml/min/1.73 sqM) Est GFR (CKD-EPI)NonAf (>60 ml/min/1.73 sqM) Glucose (74-99) mg/dL Calcium (8.4-10.2) mg/dL Magnesium (1.6-2.3) mg/dL Total Bilirubin (0.2-1.3) mg/dL AST (17-59) U/L ALT (4-49) U/L Alkaline Phosphatase (38-126) U/L Troponin I <0.012 (0.000-0.034) ng/mL NT-Pro-B Natriuret Pep 82 pg/mL Total Protein (6.3-8.2) g/dL Albumin (3.5-5.0) g/dL Amylase (30-110) U/L Lipase (23-300) U/L Coronavirus (PCR) (Not Detectd) Influenza Type A RNA Not Detected (Not Detectd) Influenza Type B (PCR) Not Detected (Not Detectd) 03/20/22 Range/Units 22:21 WBC (3.8-10.6) k/uL RBC (4.30-5.90) m/uL Hgb (13.0-17.5) gm/dL Hct (39.0-53.0) % MCV (80.0-100.0) fL MCH (25.0-35.0) pg MCHC (31.0-37.0) g/dL RDW (11.5-15.5) % Plt Count (150-450) k/uL MPV Neutrophils % % Lymphocytes % % Monocytes % % Eosinophils % % Basophils % % Neutrophils # (1.3-7.7) k/uL Lymphocytes # (1.0-4.8) k/uL Monocytes # (0-1.0) k/uL Eosinophils # (0-0.7) k/uL Basophils # (0-0.2) k/uL PT (9.0-12.0) sec INR (<1.2) APTT (22.0-30.0) sec D-Dimer (<0.60) mg/L FEU Sodium (137-145) mmol/L Potassium (3.5-5.1) mmol/L Chloride (98-107) mmol/L Carbon Dioxide (22-30) mmol/L Anion Gap mmol/L BUN (9-20) mg/dL Creatinine (0.66-1.25) mg/dL Est GFR (CKD-EPI)AfAm (>60 ml/min/1.73 sqM) Est GFR (CKD-EPI)NonAf (>60 ml/min/1.73 sqM) Glucose (74-99) mg/dL Calcium (8.4-10.2) mg/dL Magnesium (1.6-2.3) mg/dL Total Bilirubin (0.2-1.3) mg/dL AST (17-59) U/L ALT (4-49) U/L Alkaline Phosphatase (38-126) U/L Troponin I (0.000-0.034) ng/mL NT-Pro-B Natriuret Pep pg/mL Total Protein (6.3-8.2) g/dL Albumin (3.5-5.0) g/dL Amylase (30-110) U/L Lipase (23-300) U/L Coronavirus (PCR) Not Detected (Not Detectd) Influenza Type A RNA (Not Detectd) Influenza Type B (PCR) (Not Detectd) - EKG Data -: EKG Interpreted by Me EKG Comments: 12-lead Electrocardiogram Interpretation Note EKG was reviewed and interpreted by myself. 12-lead ECG performed at 2138 is interpreted by me as revealing sinus tachycardia at a rate of 102 beats per minute. [place] is normal. MO interval is 135 ms, QRS durations 100 ms, QTc is 391 ms.. There were no ST or T wave abnormalities to suggest myocardial ischemia or injury. R wave progression across the precordium was satisfactory. By my interpretation this EKG is non-diagnostic for acute ischemia. Disposition Clinical Impression: Weakness, Palpitations, Headache Disposition: ADMITTED IP TO THIS HOSP Condition: Stable Referrals: Pacheco Louis DO [Primary Care Provider] - 1-2 days
[2021-09-01] MEDS ORDERED: PROCHLORPERAZINE INJ 10 MG/2 ML VIAL IVP STA (00:11)
[2021-09-01] MEDS ORDERED: diphenhydrAMINE 50 MG/ML 1 ML VIAL IVP STA (00:11)
[2021-09-01 00:26] LABS: Appearance,Urine Clear (Clear); Bilirubin,Urine Negative (Negative); Blood,Urine Negative (Negative); Color,Urine Light Yellow; Glucose,Urine (UA) Negative (Negative); Ketones,Urine Negative (Negative); Leukocyte Esterase,Urine Negative (Negative); Nitrite,Urine Negative (Negative); PH, Urine 5.5 (5.0-8.0); Protein,Urine Negative (Negative); Specific Gravity,Urine 1.013 (1.001-1.035); Urobilinogen,Urine <2.0 mg/dL (<2.0)
[2021-09-01 02:59] LABS: Basophils # (A) 0.1 k/uL (0-0.2); Basophils % (A) 0 %; Eosinophils % (A) 0 %; HCT 45.2 % (39.0-53.0); HGB 15.3 gm/dL (13.0-17.5); Lymphocytes # (A) 2.3 k/uL (1.0-4.8); Lymphocytes % (A) 21 %; MCH 31.9 pg (25.0-35.0); MCHC 33.8 g/dL (31.0-37.0); MCV 94.3 fL (80.0-100.0); Mean Platelet Volume 9.1; Monocytes # (A) 0.6 k/uL (0-1.0); Monocytes % (A) 6 %; Neutrophils # (A) 7.9 k/uL (1.3-7.7); Neutrophils % (A) 71 %; Platelet Count 245 k/uL (150-450); RBC 4.79 m/uL (4.30-5.90); RDW 13.2 % (11.5-15.5); WBC 11.1 k/uL (3.8-10.6)
--- NOTE | 2021-09-01 03:02 | P.HPIM ---
History of Present Illness H&P Date: 08/31/21 Chief Complaint: generalized weakness , occasional chest pressure 66-year-old male hypertensive, hyperlipidemia Patient comes in due to progressive generalized weakness for many weeks he has not been feeling well with occasional heart racing and chest pressure and shortness of breath when he tries to walk around. He has been to his doctor multiple times and he was told that everything is fine and that he has sinus infections. He is growing concerned regarding his recurrent chest pressures and heart racing and decided to come in today for evaluation. He lives alone and didn't feel safe going back home feeling like this he otherwise denies any fevers or chills denies any coughing denies any nausea vomiting denies any abdominal pain urinary changes or any GI bleeding. He was feeling kind of well yesterday however today he was feeling very bad as he feels very tired and drained and weak. He had multiple episodes of heart racing today. Workup in the ED overall pretty much unremarkable troponins negative TSH was low free T4 is pending EKG showed sinus rhythm Patient is a smoker denies any recreational drugs or heavy alcohol use. Patient denies any cardiac history he denies any falls or passing out Review of Systems Pertinent positives as noted in HPI. All other systems were reviewed and are negative Past Medical History Past Medical History: Hypertension Additional Past Medical History / Comment(s): Recent bronchitis, hx [place] Palsy, Diverticulosis, sinus issues History of Any Multi-Drug Resistant Organisms: None Reported Past Surgical History: Appendectomy, Tonsillectomy Additional Past Surgical History / Comment(s): 2016 colonoscopy, tumor removed from rt side lower back. Past Anesthesia/Blood Transfusion Reactions: No Reported Reaction Past Psychological History: No Psychological Hx Reported Smoking Status: Current every day smoker Past Alcohol Use History: None Reported Past Drug Use History: None Reported - Past Family History Mother Family Medical History: Cancer Additional Family Medical History / Comment(s): Mother of lymphoma. Father Family Medical History: Coronary Artery Disease (CAD), Deep Vein Thrombosis (DVT) Additional Family Medical History / Comment(s): Father has had CABG Medications and Allergies Home Medications Medication Instructions Recorded Confirmed Type Losartan-Hctz 50-12.5 mg [Hyzaar 1 tab PO DAILY 07/25/19 06/15/21 History 50-12.5] Atorvastatin Calcium [Lipitor] 10 mg PO HS 06/15/21 06/15/21 History Erythromycin Base [Erythromycin] 500 mg PO Q8H 06/15/21 06/15/21 History Fluticasone Nasal [place] [Flonase 1 spray EA NOSTRIL DAILY #16 gm 06/15/21 Rx Nasal [place]] predniSONE [Deltasone] 40 mg PO DAILY 5 Days #10 tab 06/15/21 Rx Allergies Allergy/AdvReac Type Severity Reaction Status Date / Time amoxicillin [From Augmentin] AdvReac Nausea & Verified 08/31/21 21:26 Vomiting clavulanic acid AdvReac Nausea & Verified 08/31/21 21:26 [From Augmentin] Vomiting Physical Exam Vitals: Vital Signs Temp Pulse Pulse Resp BP BP Pulse Ox 09/01/21 01:23 97 18 132/93 97 08/31/21 21:21 98 F 114 H 19 120/75 99 Intake and Output 08/31/21 08/31/21 09/01/21 14:59 22:59 06:59 Other: Weight 83.915 kg Constitutional: No acute distress, conversant, pleasant Eyes: Anicteric sclerae, moist conjunctiva, Pupils equal round reactive to light ENMT: NC/AT Oropharynx clear, no erythema, or exudates Neck: Supple, FROM, no masses, or JVD No carotid bruits No thyromegaly Lungs: Clear to auscultation Clear to percussion Normal respiratory effort, no accessory muscle use Cardiovascular: Heart regular in rate and rhythm, No murmurs, gallops, or rubs No peripheral edema Abdominal: Soft Nontender, no guarding, rebound or rigidity Abdomen moving with respiration Normoactive bowel sounds No hepatomegaly, No splenomegaly No palpable mass No abdominal wall hernia noted Skin: Normal temperature, tone, texture, turgor No induration No subcutaneous nodules No rash, lesions No ulcers Extremities: No digital cyanosis No clubbing Pedal pulses intact and symmetrical Radial pulses intact and symmetrical No calf tenderness Psychiatric: Alert and oriented to person, place and time Appropriate affect fair judgement Neuro Muscles Strength 4/5 in all 4 extremities Sensation to light touch grossly present throughout Cranial nerves II-XII grossly intact No focal sensory deficits Lymphatics: no palpable cervical or supraclavicular , or inguinal lymph nodes Results CBC & Chem 7: 08/31/21 22:11 08/31/21 22:11 Labs: Abnormal Lab Results - Last 24 Hours (Table) 08/31/21 08/31/21 08/31/21 Range/Units 22:11 22:11 22:11 WBC 11.4 H (3.8-10.6) k/uL Neutrophils # 8.8 H (1.3-7.7) k/uL Sodium 135 L (137-145) mmol/L Carbon Dioxide 21 L (22-30) mmol/L BUN 29 H (9-20) mg/dL Glucose 117 H (74-99) mg/dL TSH 0.325 L (0.465-4.680) mIU/L Assessment and Plan Assessment: Generalized weakness Exertional dyspnea with heart racing Cardiac monitoring Trend troponins Check echocardiogram Monitor vital signs Gentle IV fluid hydration Resume home medications statin and blood pressure meds Follow up free T4 PT eval Full code Heparin subcu 3 times a day for DVT prophylaxis Anticipated length of stay less than 2 midnights
[2021-09-01 03:48] LABS: Calcium 8.4 mg/dL (8.4-10.2); Magnesium 1.9 mg/dL (1.6-2.3); Potassium 4.2 mmol/L (3.5-5.1)
[2021-09-01] MEDS ORDERED: HEPARIN SODIUM,PORCINE/PF 5,000 UNIT/0.5 ML SYRINGE SQ SCH (08:00)
[2021-09-01 08:17] VITALS: TEMP 97.8
[2021-09-01] MEDS ORDERED: LOSARTAN-HCTZ 50-12.5 MG 1 EACH TAB PO SCH (09:00)
[2021-09-01 11:24] LABS: T4, Free (Free Thyroxine) 1.65 ng/dL (0.800-1.800)
[2021-09-01 15:24] VITALS: BP 138/81; PULSE 62; RESP 18
--- NOTE | 2021-09-01 17:19 | P.DS ---
Providers Date of admission: 08/31/21 23:51 Expected date of discharge: 09/01/21 Attending physician: Donovan Sampson MD Consults: 09/01/21 13:14 Consult Physician Urgent Consulting Provider: Tenzin Rawls Consult Reason/Comments: chest pain Do you want consulting provider notified?: Yes Primary care physician: [facility] Hospital Course: Discharge Diagnosis: Chest pain and palpitations, acute coronary event ruled out Generalized weakness, likely secondary to dehydration as patient reports full resolution status post IV fluid hydration Hypertension Hyperlipidemia Hospital Course: patient is a 66-year-old male with a past medical history of hypertension and hyperlipidemia. He presented to the emergency department on 08/31/21 with a chief complaint of generalized weakness and experiencing pain and occasional chest pressure, palpitations, and shortness of breath. Upon arrival to facility patient reports chest pain, palpitations, and shortness of breath has completely resolved, but continued to report feeling weak and fatigued. Patient underwent full evaluationin the emergency department and was admitted under our services with consultation to cardiology. Patient was found to have mild leukocytosis with WBC count of 11.1, otherwise CBC and CMP were unremarkable. Troponins trended 3 at less than 0.012. EKG completed showing sinus tachycardia at 102 bpm with no noted T-wave or ST abnormalities. Chest x-ray negative for acute cardiopulmonary process. TSH was found to be low at 0.325 however free T4 normal findings at 1.650. Urinalysis negative. Covid and influenza PCR is negative. Echocardiogram was completed revealing mild left ventricular hypertrophy with EF of 50-55%. patient was awaiting to be evaluated by cardiology, however patient was requesting to be discharged and even removed own IV. Patient is medically stable at this time and continues to deny having any chest pain, palpitations, or shortness of breath since arrival to our facility. Patient was educated on the importance of following up outpatient with cardiology for evaluation for stress test. Patient seen and examined at bedside. Vital signs reviewed and stable. General: Nontoxic, no distress and appears stated age. Derm: Skin warm and dry, normal coloration for ethnicity. Head: Atraumatic, normocephalic and symmetric. Eyes: EOMs intact, no lid lag, and anicteric sclera Mouth: no lip lesions, mucus membranes moist Cardiovascular: regular rate and rhythm with normal S1S2, no murmur, positive posterior tibial pulses bilaterally, and cap refill < 2 seconds. Lungs: Respirations even, regular, and unlabored on room air. Lungs CTA bilaterally, no rhonchi, no rales, no wheezing, and no accessory muscle usage. Abdominal: soft, nontender to palpation, no guarding, no appreciable organomegaly Ext: ROM intact. No gross muscle atrophy, no edema, no contractures Neuro: Speech clear, face symmetrical and CN II-XII grossly intact with no noted focal neuro deficits Psych: Alert and oriented to person, place, time, and situation. Appropriate and pleasant affect. A total of 35 minutes of time were spent preparing this complex discharge summary. Hector Lugo NP rendered care for this patient independently, reviewed the findings and plan as documented in the note above. I did not physically speak with or examine the patient on this date. Patient Condition at Discharge: Stable Plan - Discharge Summary Discharge Rx Participant: No New Discharge Prescriptions: Continue Losartan-Hctz 50-12.5 mg [Hyzaar 50-12.5] 1 tab PO DAILY Fluticasone Nasal [place] [Flonase Nasal [place]] 1 spr EA NOSTRIL DAILY PRN PRN Reason: Allergy Symptoms Ascorbic Acid [Vitamin C] 1,000 mg PO DAILY Atorvastatin Calcium [Lipitor] 10 mg PO HS Multivitamins, Thera [Multivitamin (formulary)] 1 tab PO DAILY Cholecalciferol [Vitamin D3 (25 Mcg = 1000 Iu)] 50 mcg PO DAILY Albuterol Sulfate [Albuterol Sulfate Hfa] 2 puff INHALATION RT-QID PRN PRN Reason: Shortness Of Breath Discharge Medication List Losartan-Hctz 50-12.5 mg [Hyzaar 50-12.5] 1 tab PO DAILY 07/25/19 [History] Atorvastatin Calcium [Lipitor] 10 mg PO HS 06/15/21 [History] Albuterol Sulfate [Albuterol Sulfate Hfa] 2 puff INHALATION RT-QID PRN 09/01/21 [History] Ascorbic Acid [Vitamin C] 1,000 mg PO DAILY 09/01/21 [History] Cholecalciferol [Vitamin D3 (25 Mcg = 1000 Iu)] 50 mcg PO DAILY 09/01/21 [History] Fluticasone Nasal [place] [Flonase Nasal [place]] 1 spr EA NOSTRIL DAILY PRN 09/01/21 [History] Multivitamins, Thera [Multivitamin (formulary)] 1 tab PO DAILY 09/01/21 [History] Follow up Appointment(s)/Referral(s): Tenzin Rawls MD [STAFF PHYSICIAN] - 1 Week (You will will need to follow up outpatient with cardiology for evaluation for possible stress test. please call tomorrow to set up an appointment ) Pacheco Louis DO [Primary Care Provider] - 1-2 days (please call for an appointment tomorrow ) Patient Instructions/Handouts: Weakness (DC) Activity/Diet/Wound Care/Special Instructions: Activity: As tolerated. Take breaks as needed. Diet: Heart healthy and carb consistent diet. Avoid salts, or foods with hidden salts such as canned or boxed foods and frozen dinners. Extra salt makes your heart work harder and traps the fluid in your body for longer. Special Instructions: Take all of your medications as directed and remember to keep all of your doctor's appointments and follow-up as needed. You are being discharged as requested,, however you will still need to follow up outpatient with cardiology, Dr. Rawls for evaluation for possible stress test on outpatient basis. It is important that you return to the emergency department immediately if chest pain returns. Thank you for allowing us to participate in your care, it was truly a pleasure having you for our patient!!! Discharge Disposition: HOME SELF-CARE
[2021-09-01] MEDS ORDERED: ATORVASTATIN 10 MG TAB PO SCH (21:00)
--- NOTE | 2021-09-02 12:39 | ECHOF ---
Referral Reason:exertional dyspnea MEASUREMENTS -------- HEIGHT: 172.7 cm WEIGHT: 83.9 kg BP: RVIDd: 4.0 cm (< 3.3) IVSd: 1.2 cm (0.6 - 1.1) LVIDd: 4.1 cm (3.9 - 5.3) LVPWd: 1.3 cm (0.6 - 1.1) IVSs: 1.7 cm LVIDs: 2.7 cm LVPWs: 1.6 cm Ao Diam: 3.7 cm (2.0 - 3.7) AV Cusp: 1.8 cm (1.5 - 2.6) LA Diam: 3.3 cm (2.7 - 3.8) MV EXCURSION: 17.776 mm (> 18.000) MV EF SLOPE: 72 mm/s (70 - 150) EPSS: 0.7 cm MV E Fletcher: 0.70 m/s MV DecT: 286 ms MV A [place]: 0.56 m/s MV E/A Ratio: 1.24 RAP: 5.00 mmHg RVSP: 21.15 mmHg FINDINGS -------- This was a technically difficult study with suboptimal views. The left ventricular size is normal. There is mild concentric left ventricular hypertrophy. Overa ll left ventricular systolic function is low-normal with, an EF between 50 - 55 %. The right ventricle is moderately enlarged. The left atrial size is normal. The right atrial size is normal. Lumason used The aortic valve is trileaflet and appears structurally normal. The mitral valve is normal. There is trace mitral regurgitation. The tricuspid valve appears structurally normal. Trace tricuspid regurgitation present. Right kellee tricular systolic pressure is normal at < 35 mmHg. There is no pulmonic regurgitation present. The aortic root size is normal. IVC Not well visulized. There is no pericardial effusion. CONCLUSIONS -------- 1. The left ventricular size is normal. 2. There is mild concentric left ventricular hypertrophy. 3. Overall left ventricular systolic function is low-normal with, an EF between 50 - 55 %. 4. The right ventricle is moderately enlarged. 5. There is trace mitral regurgitation. 6. Trace tricuspid regurgitation present. 7. There is no pulmonic regurgitation present. 8. There is no pericardial effusion. FOREMAN/PROJECT MANAGER: Cyndi Ashby YOLI
== END 2021-09-01 17:37 | disposition home or self-care (01) ==
LOC: EC 21:01 → 6NMEDSUR 23:51
PROVIDERS: ADMIT Internal Medicine; ATTEND Internal Medicine
DX: R53.1 Weakness (principal); R51.9 Headache, unspecified; R00.2 Palpitations; R06.09 Other forms of dyspnea; D72.819 Decreased white blood cell count, unspecified; I10 Essential (primary) hypertension; G51.0 Bell's palsy; E78.5 Hyperlipidemia, unspecified; Z87.19 Personal history of other diseases of the digestive system; F17.200 Nicotine dependence, unspecified, uncomplicated; I25.10 Atherosclerotic heart disease of native coronary artery without angina pectoris; Z90.49 Acquired absence of other specified parts of digestive tract; Z98.890 Other specified postprocedural states; Z80.7 Family history of other malignant neoplasms of lymphoid, hematopoietic and related tissues; Z82.49 Family history of ischemic heart disease and other diseases of the circulatory system; Z79.899 Other long term (current) drug therapy; Z88.0 Allergy status to penicillin
CPT/HCPCS: 96361 ×2; 96372; 96375; 96374; 99285; 36415; 93005; 93306; 97161; 85379; 84439; 83880; 80053; 80048; 82150; 83690; 83735 ×2; 84443; 84484 ×2; 85025 ×2; 85610; 85730; 81003; 82306; 87502; 87635; 71046; G0378; J1200; J0780; J1885; Q9950; J1644

== ENCOUNTER 2021-09-08 11:45 | Emergency (ER) | payer OTHER ==
[2021-09-08] MEDS ORDERED: SODIUM CHLORIDE 0.9% 500 ML 500 ML IV STA (12:32)
[2021-09-08] MEDS ORDERED: SODIUM CHLORIDE 0.9% 1,000 ML IV STA (12:32)
[2021-09-08] MEDS ORDERED: IPRATROPIUM-ALBUTEROL 3 ML NEB INHALATION STA (12:32)
[2021-09-08] MEDS ORDERED: methylPREDNISolone SOD SUCCI 125 MG/2 ML VIAL IV STA (12:32)
--- NOTE | 2021-09-08 12:58 | ED ---
General Adult HPI - General Chief complaint: Shortness of Breath Stated complaint: Pneumonia Time Seen by Provider: 09/08/21 12:22 Source: patient Mode of arrival: ambulatory Limitations: no limitations - History of Present Illness Initial comments: This 66-year-old male presents with a complaint of difficulty in breathing. He states that he has been intermittently sick over the last 3 months. He states that it got somewhat worse over the past 3 days. He does complain of cough with white and greenish type of production. He is felt weak and fatigued. He states that he saw his doctor last week and they did an x-ray and this was suspicious for possible pneumonia. He was placed on clindamycin, prednisone, and an inhaler but states that this has not alleviated his symptoms. He called the office today as they were going to arrange an outpatient computed tomography scan of the chest. They told him to come to the ER instead. He denies any f [place] or chills. He states that he is some pain in his bilateral lateral chest when he coughs. He does have some slight pleuritic type of chest tightness in the bilateral anterior chest which seems to radiate into his back. He denies any leg pain or swelling or history of DVT or PE. He also states that he was hospitalized within the last 2 weeks for weakness at that time. He states that he had a elevated heart rate. He is unsure why he had a heart rate elevation and states that they never came to the conclusion in this regard. He states that he has had to miss a lot of work due to his symptomatology. He denies any history of COPD or asthma but does still utilize tobacco regularly. He does not have a nebulizer at home and does not utilize home oxygen. No other complaints or modifying factors. - Related Data Home Medications Medication Instructions Recorded Confirmed Losartan-Hctz 50-12.5 mg [Hyzaar 1 tab PO DAILY 07/25/19 09/08/21 50-12.5] Atorvastatin Calcium [Lipitor] 10 mg PO DAILY 06/15/21 09/08/21 Albuterol Sulfate [Albuterol 2 puff INHALATION RT-QID PRN 09/01/21 09/08/21 Sulfate Hfa] Ascorbic Acid [Vitamin C] 1,000 mg PO DAILY 09/01/21 09/08/21 Cholecalciferol [Vitamin D3 (25 50 mcg PO DAILY 09/01/21 09/08/21 Mcg = 1000 Iu)] Fluticasone Nasal [place] [Flonase 1 spr EA NOSTRIL DAILY PRN 09/01/21 09/08/21 Nasal [place]] Multivitamins, Thera [Multivitamin 1 tab PO DAILY 09/01/21 09/08/21 (formulary)] Clindamycin HCl 300 mg PO TID 09/08/21 09/08/21 Zinc 50 mg PO DAILY 09/08/21 09/08/21 predniSONE 10 mg PO DAILY 09/08/21 09/08/21 Previous Rx's Medication Instructions Recorded Ipratropium-Albuterol Nebulize 3 ml INHALATION Q4H #250 ml 09/08/21 [Duoneb 0.5 mg-3 mg/3 ml Soln] Allergies Allergy/AdvReac Type Severity Reaction Status Date / Time amoxicillin [From Augmentin] AdvReac Nausea & Verified 09/08/21 13:54 Vomiting clavulanic acid AdvReac Nausea & Verified 09/08/21 13:54 [From Augmentin] Vomiting Review of Systems ROS Statement: Those systems with pertinent positive or pertinent negative responses have been documented in the HPI. ROS Other: All systems not noted in ROS Statement are negative. Past Medical History Past Medical History: Hypertension Additional Past Medical History / Comment(s): Recent bronchitis, hx [place] Palsy, Diverticulosis, sinus issues History of Any Multi-Drug Resistant Organisms: None Reported Past Surgical History: Appendectomy, Tonsillectomy Additional Past Surgical History / Comment(s): 2016 colonoscopy, tumor removed from rt side lower back. Past Anesthesia/Blood Transfusion Reactions: No Reported Reaction Past Psychological History: No Psychological Hx Reported Smoking Status: Current every day smoker Past Alcohol Use History: None Reported Past Drug Use History: None Reported - Past Family History Mother Family Medical History: Cancer Additional Family Medical History / Comment(s): Mother of lymphoma. Father Family Medical History: Coronary Artery Disease (CAD), Deep Vein Thrombosis (DVT) Additional Family Medical History / Comment(s): Father has had CABG General Exam - General Exam Comments Initial Comments: GENERAL: The patient is well nourished and well hydrated. VITAL SIGNS: Heart rate, blood pressure, respiratory rate reviewed as recorded in nurse's notes. EYES: Pupils are round and reactive. Extraocular movements are intact. No conjunctival / lid redness or swelling. ENT: No external evidence of injury, swelling, or ecchymosis. Airway is patent. Throat is clear. NECK: Nontender. No swelling or evidence of injury. No subcutaneous emphysema. Trachea is midline. No thyroid mass. HEART: Regular rate and rhythm. Good peripheral pulses. LUNGS/CHEST: Mild wheezing noted bilaterally with slight decreased aeration. No ecchymosis, subcutaneous emphysema, or tenderness. ABDOMEN: Abdomen soft without tenderness. No palpable masses or organomegaly. No peritoneal signs. No abdominal wall swelling or ecchymosis. EXTREMITIES: No extremity tenderness. Normal muscle tone and function. No thoracolumbar tenderness. NEUROLOGIC: Sensation is grossly intact. Cranial nerve exam reveals face is symmetrical, tongue is midline, speech is clear. SKIN: No abrasions or ecchymosis is noted. No induration or masses noted. PSYCHIATRIC: Alert and oriented. Appropriate behavior and judgment. Limitations: no limitations Course Vital Signs 09/08/21 09/08/21 09/08/21 11:50 13:11 13:12 Temperature 98.8 F Pulse Rate 100 83 88 Respiratory 20 18 Rate Blood Pressure 127/87 O2 Sat by Pulse 99 100 Oximetry 09/08/21 09/08/21 09/08/21 13:23 14:21 15:15 Temperature Pulse Rate 96 88 63 Respiratory 18 18 Rate Blood Pressure 134/100 O2 Sat by Pulse 98 99 Oximetry Medical Decision Making - Medical Decision Making The patient was seen and examined. All diagnostics are reviewed. An IV is established and he is hydrated. DuoNeb breathing treatment is ordered. Solu- Medrol was ordered intravenously. Laboratories unremarkable. He does relate that the breathing treatment helped him out quite a bit. The EKG shows a normal sinus rhythm at a rate of 74. There is no acute ST-T wave changes identified. The [place] intervals 141, QRS duration is 89, and the QTC intervals 401. The patient does relate that the clindamycin seem to be working fairly well for and he was previously on a course of Levaquin without relief. His CT angiogram of the chest does not show any evidence of pneumonia or pulmonary embolism. It does show thyroid calcification an ultrasound is recommended. This is related to the patient and is aware of following up with his doctor to arrange this. He does voice understanding. The computed tomography scan does show emphysematous changes of the lungs. A long discussion was held regarding tobacco cessation. It is felt as though he may benefit from nebulized breathing treatments at home. He is to continue with the clindamycin and prednisone. He states that he has follow-up with a mail censor and his next appointment is in 2 months. He is instructed to call and try to get in sooner. It is felt as though he stable for discharge. Return parameters are discussed. - Lab Data Result diagrams: 09/08/21 12:49 09/08/21 12:49 Lab Results 09/08/21 09/08/21 09/08/21 Range/Units 12:49 12:49 12:49 WBC 9.7 (3.8-10.6) k/uL RBC 5.01 (4.30-5.90) m/uL Hgb 16.1 (13.0-17.5) gm/dL Hct 47.7 (39.0-53.0) % MCV 95.2 (80.0-100.0) fL MCH 32.1 (25.0-35.0) pg MCHC 33.8 (31.0-37.0) g/dL RDW 13.3 (11.5-15.5) % Plt Count 238 (150-450) k/uL MPV 8.8 Neutrophils % 76 % Lymphocytes % 18 % Monocytes % 3 % Eosinophils % 1 % Basophils % 0 % Neutrophils # 7.4 (1.3-7.7) k/uL Lymphocytes # 1.7 (1.0-4.8) k/uL Monocytes # 0.3 (0-1.0) k/uL Eosinophils # 0.1 (0-0.7) k/uL Basophils # 0.0 (0-0.2) k/uL PT 9.4 (9.0-12.0) sec INR 0.8 (<1.2) APTT 22.4 (22.0-30.0) sec D-Dimer 0.27 (<0.60) mg/L FEU Sodium 135 L (137-145) mmol/L Potassium 4.7 (3.5-5.1) mmol/L Chloride 102 (98-107) mmol/L Carbon Dioxide 24 (22-30) mmol/L Anion Gap 9 mmol/L BUN 17 (9-20) mg/dL Creatinine 0.92 (0.66-1.25) mg/dL Est GFR (CKD-EPI)AfAm >90 (>60 ml/min/1.73 sqM) Est GFR (CKD-EPI)NonAf 88 (>60 ml/min/1.73 sqM) Glucose 117 H (74-99) mg/dL Plasma Lactic Acid Marco (0.7-2.0) mmol/L Calcium 9.5 (8.4-10.2) mg/dL Total Bilirubin 0.7 (0.2-1.3) mg/dL AST 21 (17-59) U/L ALT 25 (4-49) U/L Alkaline Phosphatase 67 (38-126) U/L Troponin I (0.000-0.034) ng/mL NT-Pro-B Natriuret Pep pg/mL Total Protein 7.2 (6.3-8.2) g/dL Albumin 4.1 (3.5-5.0) g/dL Coronavirus (PCR) (Not Detectd) Influenza Type A RNA (Not Detectd) Influenza Type B (PCR) (Not Detectd) 09/08/21 09/08/21 09/08/21 Range/Units 12:49 12:49 13:07 WBC (3.8-10.6) k/uL RBC (4.30-5.90) m/uL Hgb (13.0-17.5) gm/dL Hct (39.0-53.0) % MCV (80.0-100.0) fL MCH (25.0-35.0) pg MCHC (31.0-37.0) g/dL RDW (11.5-15.5) % Plt Count (150-450) k/uL MPV Neutrophils % % Lymphocytes % % Monocytes % % Eosinophils % % Basophils % % Neutrophils # (1.3-7.7) k/uL Lymphocytes # (1.0-4.8) k/uL Monocytes # (0-1.0) k/uL Eosinophils # (0-0.7) k/uL Basophils # (0-0.2) k/uL PT (9.0-12.0) sec INR (<1.2) APTT (22.0-30.0) sec D-Dimer (<0.60) mg/L FEU Sodium (137-145) mmol/L Potassium (3.5-5.1) mmol/L Chloride (98-107) mmol/L Carbon Dioxide (22-30) mmol/L Anion Gap mmol/L BUN (9-20) mg/dL Creatinine (0.66-1.25) mg/dL Est GFR (CKD-EPI)AfAm (>60 ml/min/1.73 sqM) Est GFR (CKD-EPI)NonAf (>60 ml/min/1.73 sqM) Glucose (74-99) mg/dL Plasma Lactic Acid Marco 1.6 (0.7-2.0) mmol/L Calcium (8.4-10.2) mg/dL Total Bilirubin (0.2-1.3) mg/dL AST (17-59) U/L ALT (4-49) U/L Alkaline Phosphatase (38-126) U/L Troponin I <0.012 (0.000-0.034) ng/mL NT-Pro-B Natriuret Pep 145 pg/mL Total Protein (6.3-8.2) g/dL Albumin (3.5-5.0) g/dL Coronavirus (PCR) (Not Detectd) Influenza Type A RNA (Not Detectd) Influenza Type B (PCR) (Not Detectd) 09/08/21 09/08/21 Range/Units 13:11 13:11 WBC (3.8-10.6) k/uL RBC (4.30-5.90) m/uL Hgb (13.0-17.5) gm/dL Hct (39.0-53.0) % MCV (80.0-100.0) fL MCH (25.0-35.0) pg MCHC (31.0-37.0) g/dL RDW (11.5-15.5) % Plt Count (150-450) k/uL MPV Neutrophils % % Lymphocytes % % Monocytes % % Eosinophils % % Basophils % % Neutrophils # (1.3-7.7) k/uL Lymphocytes # (1.0-4.8) k/uL Monocytes # (0-1.0) k/uL Eosinophils # (0-0.7) k/uL Basophils # (0-0.2) k/uL PT (9.0-12.0) sec INR (<1.2) APTT (22.0-30.0) sec D-Dimer (<0.60) mg/L FEU Sodium (137-145) mmol/L Potassium (3.5-5.1) mmol/L Chloride (98-107) mmol/L Carbon Dioxide (22-30) mmol/L Anion Gap mmol/L BUN (9-20) mg/dL Creatinine (0.66-1.25) mg/dL Est GFR (CKD-EPI)AfAm (>60 ml/min/1.73 sqM) Est GFR (CKD-EPI)NonAf (>60 ml/min/1.73 sqM) Glucose (74-99) mg/dL Plasma Lactic Acid Marco (0.7-2.0) mmol/L Calcium (8.4-10.2) mg/dL Total Bilirubin (0.2-1.3) mg/dL AST (17-59) U/L ALT (4-49) U/L Alkaline Phosphatase (38-126) U/L Troponin I (0.000-0.034) ng/mL NT-Pro-B Natriuret Pep pg/mL Total Protein (6.3-8.2) g/dL Albumin (3.5-5.0) g/dL Coronavirus (PCR) Not Detected (Not Detectd) Influenza Type A RNA Not Detected (Not Detectd) Influenza Type B (PCR) Not Detected (Not Detectd) Disposition Clinical Impression: Dyspnea, COPD exacerbation, Tobacco abuse, Chest pain, Weakness, Bronchitis, Thyroid nodule Disposition: HOME SELF-CARE Condition: Good Instructions (If sedation given, give patient instructions): Acute Bronchitis (ED), COPD (Chronic Obstructive Pulmonary Disease) (ED), How to Stop Smoking (ED) Prescriptions: Ipratropium-Albuterol Nebulize [Duoneb 0.5 mg-3 mg/3 ml Soln] 3 ml INHALATION Q4H #250 ml Is patient prescribed a controlled substance at d/c from ED?: No Referrals: Pacheco Louis DO [Primary Care Provider] - 1-2 days Time of Disposition: 15:32 Decision Date: 09/08/21 Decision Time: 15:32
[2021-09-08 13:16] VITALS: RESP 18
[2021-09-08 13:18] LABS: Basophils % (A) 0 %; Eosinophils # (A) 0.1 k/uL (0-0.7); Eosinophils % (A) 1 %; HCT 47.7 % (39.0-53.0); HGB 16.1 gm/dL (13.0-17.5); Lymphocytes # (A) 1.7 k/uL (1.0-4.8); Lymphocytes % (A) 18 %; MCH 32.1 pg (25.0-35.0); MCHC 33.8 g/dL (31.0-37.0); MCV 95.2 fL (80.0-100.0); Mean Platelet Volume 8.8; Monocytes # (A) 0.3 k/uL (0-1.0); Monocytes % (A) 3 %; Neutrophils # (A) 7.4 k/uL (1.3-7.7); Neutrophils % (A) 76 %; Platelet Count 238 k/uL (150-450); RBC 5.01 m/uL (4.30-5.90); RDW 13.3 % (11.5-15.5); WBC 9.7 k/uL (3.8-10.6)
[2021-09-08 13:41] LABS: INR 0.8 (<1.2); Partial Thromboplastin Time 22.4 sec (22.0-30.0); Prothrombin Time 9.4 sec (9.0-12.0)
[2021-09-08 13:45] LABS: ALT 25 U/L (4-49); AST 21 U/L (17-59); African American GFR (CKD) >90 (>60 ml/min/1.73 sqM); Albumin 4.1 g/dL (3.5-5.0); Alkaline Phosphatase 67 U/L (38-126); Anion Gap 9 mmol/L; Blood Urea Nitrogen 17 mg/dL (9-20); Calcium 9.5 mg/dL (8.4-10.2); Carbon Dioxide 24 mmol/L (22-30); Chloride 102 mmol/L (98-107); Glucose 117 mg/dL (74-99); Non-African American GFR(CKD) 88 (>60 ml/min/1.73 sqM); Potassium 4.7 mmol/L (3.5-5.1); Sodium 135 mmol/L (137-145); Total Bilirubin 0.7 mg/dL (0.2-1.3); Total Protein 7.2 g/dL (6.3-8.2)
--- NOTE | 2021-09-08 14:43 | CT ---
EXAMINATION TYPE: CT angio chest DATE OF EXAM: 09/08/2021 COMPARISON: CT dated 07/13/2020 HISTORY: Shortness of breath. CT DLP: 318.8 mGy.cm. Automated Exposure Control for Dose Reduction was Utilized. TECHNIQUE AND CONTRAST: CTA scan of the thorax is performed with IV Contrast, patient injected with 100 mL of Isovue 370, pul [facility] angiogram protocol. MIP Images are created on an independent workstation and reviewed. FINDINGS: No definite filling defect within the pulmonary trunk, main pulmonary arteries, lobar and segmental b ranches to suggest pulmonary embolism. Subsegmental branches are suboptimally assessed. The pulmonary trunk measures 2.8 cm. No gross cardiomegaly. Scattered arterial atherosclerotic calcifications. Sub centimeter bilateral axillary, hilar and mediastinal lymph nodes, nonspecific. No pathologically enla rged lymph nodes in the chest. Patent trachea and main bronchi. Paraseptal emphysematous changes are seen in the upper and midlung z ones. Millimetric nodules are seen at the lateral aspect of the right lower lobe measuring up to 3 mm , stable since 2020 CT scan. Fibrotic changes in the lung apex bilaterally. Mild centrilobular emphys ematous changes of the upper lobes. No pleural or pericardial effusion. Left thyroid lobe calcification with suspected right thyroid lobe hypodensity, please correlate with thyroid ultrasound results. Small sliding hiatal hernia. 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 IMPRESSION: No major or central pulmonary embolism. Other findings as described above.
[2021-09-08 16:00] VITALS: BP 135/100; PULSE 67; TEMP 98.3
== END 2021-09-08 16:00 | disposition home or self-care (01) ==
LOC: EC 11:45
DX: J44.1 Chronic obstructive pulmonary disease with (acute) exacerbation (principal); R07.89 Other chest pain; R53.1 Weakness; J20.9 Acute bronchitis, unspecified; E04.1 Nontoxic single thyroid nodule; I10 Essential (primary) hypertension; F17.290 Nicotine dependence, other tobacco product, uncomplicated; Z88.1 Allergy status to other antibiotic agents; Z90.49 Acquired absence of other specified parts of digestive tract; Z20.822 Contact with and (suspected) exposure to COVID-19
CPT/HCPCS: 99285; 96374; 96361 ×3; 36415; 94640; 93005; 85379; 83880; 80053; 83605; 84484; 85025; 85610; 85730; 87040; 87502; 87635; 71275; J2930; Q9967

== ENCOUNTER 2021-09-15 13:32 | Emergency (ER) | payer OTHER ==
[2021-09-15 13:42] VITALS: TEMP 97
[2021-09-15] MEDS ORDERED: SODIUM CHLORIDE 0.9% 1,000 ML IV STA ×2 (14:27)
[2021-09-15] MEDS ORDERED: FAMOTIDINE 20 MG/2 ML VIAL IV STA (14:27)
[2021-09-15] MEDS ORDERED: KETOROLAC 15 MG/ML 1 ML VIAL IVP STA (14:40)
--- NOTE | 2021-09-15 14:40 | ED ---
Allergic Reaction HPI - General Chief complaint: Allergic Reaction Stated complaint: nausea/vomiting Time Seen by Provider: 09/15/21 14:17 Source: patient, EMS, RN notes reviewed Mode of arrival: EMS Limitations: no limitations - History of Present Illness Initial Comments: 66-year-old male who states he had a reaction after taking Augmentin this mornin g he is scheduled for surgery of his sinuses in 4 days and was given Augmentin apparently preoperatively. He states he did not have any shortness of breath rash he did have nausea vomiting multiple occasions with some diarrhea. Muscles feel somewhat lightheaded. No fevers chills but sweats reported at this time no chest pain no palpitations. He does have a known history of adverse reaction to amoxicillin and clavulanic acid. He also complains of a slight nonspecific headache. MD Complaint: allergic reaction - Related Data Home Medications Medication Instructions Recorded Confirmed Losartan-Hctz 50-12.5 mg [Hyzaar 1 tab PO DAILY 07/25/19 09/15/21 50-12.5] Atorvastatin Calcium [Lipitor] 10 mg PO DAILY 06/15/21 09/15/21 Albuterol Sulfate [Albuterol 2 puff INHALATION RT-QID PRN 09/01/21 09/15/21 Sulfate Hfa] Ascorbic Acid [Vitamin C] 1,000 mg PO DAILY 09/01/21 09/15/21 Cholecalciferol [Vitamin D3 (25 50 mcg PO DAILY 09/01/21 09/15/21 Mcg = 1000 Iu)] Fluticasone Nasal [place] [Flonase 1 spr EA NOSTRIL DAILY PRN 09/01/21 09/15/21 Nasal [place]] Multivitamins, Thera [Multivitamin 1 tab PO DAILY 09/01/21 09/15/21 (formulary)] Zinc 50 mg PO DAILY 09/08/21 09/15/21 Ipratropium-Albuterol Nebulize 3 ml INHALATION RT-Q4H PRN 09/15/21 09/15/21 [Duoneb 0.5 mg-3 mg/3 ml Soln] Previous Rx's Medication Instructions Recorded Sulfamethox-Tmp 800-160Mg [Bactrim 2 each PO Q12HR #10 tab 09/15/21 DS 800-160 mg] Allergies Allergy/AdvReac Type Severity Reaction Status Date / Time amoxicillin [From Augmentin] AdvReac Nausea & Verified 09/15/21 16:07 Vomiting clavulanic acid AdvReac Nausea & Verified 09/15/21 16:07 [From Augmentin] Vomiting Review of Systems ROS Statement: Those systems with pertinent positive or pertinent negative responses have been documented in the HPI. ROS Other: All systems not noted in ROS Statement are negative. Past Medical History Past Medical History: Hypertension Additional Past Medical History / Comment(s): Recent bronchitis, hx [place] Palsy, Diverticulosis, sinus issues History of Any Multi-Drug Resistant Organisms: None Reported Past Surgical History: Appendectomy, Tonsillectomy Additional Past Surgical History / Comment(s): 2016 colonoscopy, tumor removed from rt side lower back. Past Anesthesia/Blood Transfusion Reactions: No Reported Reaction Past Psychological History: No Psychological Hx Reported Smoking Status: Current every day smoker Past Alcohol Use History: None Reported Past Drug Use History: None Reported - Past Family History Mother Family Medical History: Cancer Additional Family Medical History / Comment(s): Mother of lymphoma. Father Family Medical History: Coronary Artery Disease (CAD), Deep Vein Thrombosis (DVT) Additional Family Medical History / Comment(s): Father has had CABG General Exam - General Exam Comments Initial Comments: This is a well-developed well-nourished awake alert oriented 3 male Limitations: no limitations General appearance: alert, in no apparent distress Head exam: Present: atraumatic, normocephalic, normal inspection Eye exam: Present: normal appearance, PERRL, EOMI. Absent: scleral icterus, conjunctival injection, periorbital swelling ENT exam: Present: mucous membranes dry Neck exam: Present: normal inspection, full ROM, other (No stridor JVD or bruits). Absent: tenderness, meningismus, lymphadenopathy Respiratory exam: Present: normal lung sounds bilaterally. Absent: respiratory distress, wheezes, rales, rhonchi, stridor Cardiovascular Exam: Present: normal rhythm, tachycardia, normal heart sounds. Absent: systolic murmur, diastolic murmur, rubs, gallop, clicks GI/Abdominal exam: Present: soft, tenderness (The epigastric tenderness palpation no guarding rebound masses or bruits), normal bowel sounds. Absent: distended, guarding, rebound, rigid Extremities exam: Present: normal inspection, full ROM, normal capillary refill. Absent: tenderness, pedal edema, joint swelling, calf tenderness Back exam: Present: normal inspection Neurological exam: Present: alert, oriented X3, CN II-XII intact Psychiatric exam: Present: normal affect, normal mood Skin exam: Present: warm, dry, intact, normal color. Absent: rash Course Vital Signs 09/15/21 09/15/21 09/15/21 13:39 14:30 16:00 Temperature 97.0 F L Pulse Rate 111 H 101 H Respiratory 18 16 16 Rate Blood Pressure 123/90 124/77 O2 Sat by Pulse 97 98 Oximetry 09/15/21 16:48 Temperature Pulse Rate 98 Respiratory 18 Rate Blood Pressure 125/79 O2 Sat by Pulse 95 Oximetry Medical Decision Making - Medical Decision Making I did reevaluate patient has abdominal discomfort is improved patient still complains of a headache that is somewhat throbbing in nature he did have some dizziness earlier. Initially was to have a CAT scan as well as medication he states his headaches better after the medication he is refusing CAT scan this time he was to be discharged he will do that he is follow-up with his doctor return when necessary. Additionally did discuss the case with Dr. Parker patient will be switched to Bactrim he is to keep his appointments as planned Tylenol for pain. - Lab Data Result diagrams: 09/15/21 14:39 09/15/21 14:39 Lab Results 09/15/21 09/15/21 09/15/21 Range/Units 14:39 14:39 14:39 WBC 23.0 H (3.8-10.6) k/uL RBC 5.31 (4.30-5.90) m/uL Hgb 17.3 (13.0-17.5) gm/dL Hct 50.3 (39.0-53.0) % MCV 94.8 (80.0-100.0) fL MCH 32.6 (25.0-35.0) pg MCHC 34.4 (31.0-37.0) g/dL RDW 13.6 (11.5-15.5) % Plt Count 254 (150-450) k/uL MPV 8.4 Neutrophils % 94 % Lymphocytes % 1 % Monocytes % 4 % Eosinophils % 0 % Basophils % 0 % Neutrophils # 21.5 H (1.3-7.7) k/uL Lymphocytes # 0.3 L (1.0-4.8) k/uL Monocytes # 0.9 (0-1.0) k/uL Eosinophils # 0.0 (0-0.7) k/uL Basophils # 0.1 (0-0.2) k/uL Manual Slide Review Performed RBC Morphology Normal Sodium 137 (137-145) mmol/L Potassium 4.4 (3.5-5.1) mmol/L Chloride 105 (98-107) mmol/L Carbon Dioxide 22 (22-30) mmol/L Anion Gap 10 mmol/L BUN 23 H (9-20) mg/dL Creatinine 0.91 (0.66-1.25) mg/dL Est GFR (CKD-EPI)AfAm >90 (>60 ml/min/1.73 sqM) Est GFR (CKD-EPI)NonAf 89 (>60 ml/min/1.73 sqM) Glucose 120 H (74-99) mg/dL Calcium 8.8 (8.4-10.2) mg/dL Magnesium 1.9 (1.6-2.3) mg/dL Total Bilirubin 1.1 (0.2-1.3) mg/dL AST 29 (17-59) U/L ALT 26 (4-49) U/L Alkaline Phosphatase 65 (38-126) U/L Creatine Kinase 50 L (55-170) U/L Troponin I <0.012 (0.000-0.034) ng/mL Total Protein 7.6 (6.3-8.2) g/dL Albumin 4.4 (3.5-5.0) g/dL - Radiology Data Radiology results: report reviewed (Imaging reviewed nonspecific bowel gas pattern), image reviewed Disposition Clinical Impression: Gastroenteritis, Dehydration, Cephalgia Disposition: HOME SELF-CARE Condition: Good Instructions (If sedation given, give patient instructions): Dehydration (ED), Gastroenteritis (ED) Additional Instructions: . Tylenol for pain we will switch to Bactrim Stop taking Augmentin Prescriptions: Sulfamethox-Tmp 800-160Mg [Bactrim DS 800-160 mg] 2 each PO Q12HR #10 tab Is patient prescribed a controlled substance at d/c from ED?: No Referrals: Pacheco Louis DO [Primary Care Provider] - 1-2 days Decision Time: 17:50
[2021-09-15 14:55] LABS: ALT 26 U/L (4-49); AST 29 U/L (17-59); African American GFR (CKD) >90 (>60 ml/min/1.73 sqM); Albumin 4.4 g/dL (3.5-5.0); Alkaline Phosphatase 65 U/L (38-126); Anion Gap 10 mmol/L; Blood Urea Nitrogen 23 mg/dL (9-20); Calcium 8.8 mg/dL (8.4-10.2); Carbon Dioxide 22 mmol/L (22-30); Chloride 105 mmol/L (98-107); Creatine Kinase 50 U/L (55-170); Glucose 120 mg/dL (74-99); Magnesium 1.9 mg/dL (1.6-2.3); Non-African American GFR(CKD) 89 (>60 ml/min/1.73 sqM); Sodium 137 mmol/L (137-145); Total Bilirubin 1.1 mg/dL (0.2-1.3); Total Protein 7.6 g/dL (6.3-8.2)
[2021-09-15 14:56] LABS: Potassium 4.4 mmol/L (3.5-5.1)
[2021-09-15 14:58] LABS: Basophils # (A) 0.1 k/uL (0-0.2); Basophils % (A) 0 %; Eosinophils % (A) 0 %; HCT 50.3 % (39.0-53.0); HGB 17.3 gm/dL (13.0-17.5); Lymphocytes # (A) 0.3 k/uL (1.0-4.8); Lymphocytes % (A) 1 %; MCH 32.6 pg (25.0-35.0); MCHC 34.4 g/dL (31.0-37.0); MCV 94.8 fL (80.0-100.0); Mean Platelet Volume 8.4; Monocytes # (A) 0.9 k/uL (0-1.0); Monocytes % (A) 4 %; Neutrophils # (A) 21.5 k/uL (1.3-7.7); Neutrophils % (A) 94 %; Platelet Count 254 k/uL (150-450); RBC 5.31 m/uL (4.30-5.90); RDW 13.6 % (11.5-15.5)
[2021-09-15 16:03] LABS: RBC Morphology Normal
--- NOTE | 2021-09-15 16:41 | XR ---
EXAMINATION TYPE: XR KUB DATE OF EXAM: 09/15/2021 4:34 PM INDICATION: Patient age:Male; 66 years old; Reason for study: Abdominal pain, diarrhea; COMPARISON: CT abdomen pelvis 07/18/2020. TECHNIQUE: One radiographic view of the abdomen was obtained. FINDINGS: Multiple surgical clips are quadrant. The bowel gas pattern is nonspecific without dilated loops of small or large bowel. The osseous structures are intact. Fecal material and gas are demons trated throughout the colon and rectum. IMPRESSION: Nonspecific bowel gas pattern without radiographic evidence for acute process.
[2021-09-15 16:48] VITALS: RESP 18
[2021-09-15] MEDS ORDERED: PROCHLORPERAZINE INJ 10 MG/2 ML VIAL IVP STA (17:32)
[2021-09-15] MEDS ORDERED: methylPREDNISolone SOD SUCCI 125 MG/2 ML VIAL IV STA (17:32)
[2021-09-15] MEDS ORDERED: diphenhydrAMINE 50 MG/ML 1 ML VIAL IVP STA (17:32)
[2021-09-15 18:12] VITALS: BP 125/78; PULSE 109
== END 2021-09-15 18:12 | disposition home or self-care (01) ==
LOC: EC 13:32
DX: K52.9 Noninfective gastroenteritis and colitis, unspecified (principal); E86.0 Dehydration; R51.9 Headache, unspecified; I10 Essential (primary) hypertension; F17.200 Nicotine dependence, unspecified, uncomplicated; Z88.1 Allergy status to other antibiotic agents; Z90.49 Acquired absence of other specified parts of digestive tract
CPT/HCPCS: 99284; 96374; 96375 ×4; 96361; 36415; 80053; 82550; 83735; 84484; 85025; 74018; J1200; J0780; J2930; J1885

== ENCOUNTER → 2021-09-30 | Outpatient (CLI) | payer OTHER ==
--- NOTE | 2021-10-09 08:09 | EM ---
EVENT MONITOR SEVEN-DAY EVENT MONITOR: The available rhythm strips were reviewed. Predominant rhythm appears to be sinus with isolated rare PVCs. No significant abnormal rhythms were noted. Sinus rhythm and sinus tachycardia were the predominant rhythms. Unremarkable seven-day event monitor with sinus rhythm and sinus tachycardia. No significant arrhythmia noted. MMDAYTON / ANAN: [id number] /
== END | disposition home or self-care (01) ==
LOC: RADECHMAIN 12:15
PROVIDERS: ATTEND Family Medicine
DX: I49.3 Ventricular premature depolarization (principal)
CPT/HCPCS: 93270

== ENCOUNTER 2022-02-24 09:30 | Emergency (ER) | payer OTHER ==
[2022-02-24 09:50] VITALS: RESP 18
[2022-02-24 10:15] LABS: Basophils # (A) 0.1 k/uL (0-0.2); Basophils % (A) 1 %; Eosinophils # (A) 0.2 k/uL (0-0.7); Eosinophils % (A) 2 %; HCT 48.5 % (39.0-53.0); HGB 16.3 gm/dL (13.0-17.5); Lymphocytes # (A) 4.2 k/uL (1.0-4.8); Lymphocytes % (A) 41 %; MCH 31.4 pg (25.0-35.0); MCHC 33.5 g/dL (31.0-37.0); MCV 93.6 fL (80.0-100.0); Mean Platelet Volume 8.5; Monocytes # (A) 0.8 k/uL (0-1.0); Monocytes % (A) 8 %; Neutrophils # (A) 4.7 k/uL (1.3-7.7); Neutrophils % (A) 46 %; Platelet Count 266 k/uL (150-450); RBC 5.18 m/uL (4.30-5.90); RDW 13.6 % (11.5-15.5); WBC 10.3 k/uL (3.8-10.6)
[2022-02-24 10:25] LABS: INR 0.9 (<1.2); Partial Thromboplastin Time 23.9 sec (22.0-30.0); Prothrombin Time 9.5 sec (9.0-12.0)
[2022-02-24 10:28] LABS: Albumin 4.6 g/dL (3.5-5.0); Calcium 9.4 mg/dL (8.4-10.2); Potassium 3.5 mmol/L (3.5-5.1); Total Bilirubin 0.6 mg/dL (0.2-1.3); Total Protein 7.4 g/dL (6.3-8.2)
[2022-02-24 14:17] VITALS: TEMP 98.6
[2022-02-24] MEDS ORDERED: hydrALAZINE HCL 20 MG/ML 1 ML VIAL IVP STA (14:18)
[2022-02-24] MEDS ORDERED: ACETAMINOPHEN TAB 500 MG TAB PO STA (14:18)
[2022-02-24 15:00] VITALS: BP 146/82; PULSE 70
--- NOTE | 2022-02-24 15:29 | ED ---
General Adult HPI - General Chief complaint: Dizziness Stated complaint: High BP Time Seen by Provider: 02/24/22 14:15 Source: patient, RN notes reviewed, old records reviewed Mode of arrival: ambulatory Limitations: no limitations - History of Present Illness Initial comments: This is a 66-year-old male who presents emergency Department stating that his blood pressure has been elevated over the last week. Patient states he does take his blood pressure medication daily. Patient states today he went to work and felt a little lightheaded and the repeated blood pressure and the systolic blood pressure was around 200 in the diastolic blood pressure was being 100 110. Patient states she's had no chest pain no difficulty breathing no palpitations. Patient denies any abdominal pain patient denies nausea vomiting diarrhea. Patient states she does have a mild headache but has no visual disturbances. Patient has no numbness or weakness. - Related Data Home Medications Medication Instructions Recorded Confirmed Losartan-Hctz 50-12.5 mg [Hyzaar 1 tab PO DAILY 07/25/19 09/15/21 50-12.5] Atorvastatin Calcium [Lipitor] 10 mg PO DAILY 06/15/21 09/15/21 Albuterol Sulfate [Albuterol 2 puff INHALATION RT-QID PRN 09/01/21 09/15/21 Sulfate Hfa] Ascorbic Acid [Vitamin C] 1,000 mg PO DAILY 09/01/21 09/15/21 Cholecalciferol [Vitamin D3 (25 50 mcg PO DAILY 09/01/21 09/15/21 Mcg = 1000 Iu)] Fluticasone Nasal [place] [Flonase 1 spr EA NOSTRIL DAILY PRN 09/01/21 09/15/21 Nasal [place]] Multivitamins, Thera [Multivitamin 1 tab PO DAILY 09/01/21 09/15/21 (formulary)] Zinc 50 mg PO DAILY 09/08/21 09/15/21 Ipratropium-Albuterol Nebulize 3 ml INHALATION RT-Q4H PRN 09/15/21 09/15/21 [Duoneb 0.5 mg-3 mg/3 ml Soln] Previous Rx's Medication Instructions Recorded Sulfamethox-Tmp 800-160Mg [Bactrim 2 each PO Q12HR #10 tab 09/15/21 DS 800-160 mg] Allergies Allergy/AdvReac Type Severity Reaction Status Date / Time amoxicillin [From Augmentin] AdvReac Nausea & Verified 02/24/22 09:50 Vomiting clavulanic acid AdvReac Nausea & Verified 02/24/22 09:50 [From Augmentin] Vomiting Review of Systems ROS Statement: Those systems with pertinent positive or pertinent negative responses have been documented in the HPI. ROS Other: All systems not noted in ROS Statement are negative. 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 Past Anesthesia/Blood Transfusion Reactions: No Reported Reaction Past Psychological History: No Psychological Hx Reported Smoking Status: Current every day smoker Past Alcohol Use History: None Reported Past Drug Use History: None Reported - Past Family History Mother Family Medical History: Cancer Additional Family Medical History / Comment(s): Mother of lymphoma. Father Family Medical History: Coronary Artery Disease (CAD), Deep Vein Thrombosis (DVT) Additional Family Medical History / Comment(s): Father has had CABG General Exam - General Exam Comments Initial Comments: GENERAL: Patient is well-developed and well-nourished. Patient is nontoxic and well- hydrated and is in mild distress. ENT: Neck is soft and supple. No significant lymphadenopathy is noted. Oropharynx is clear. Moist mucous membranes. Neck has full range of motion without eliciting any pain. There is no thyroid enlargement and no masses were felt. EYES: The sclera were anicteric and conjunctiva were pink and moist. Extraocular movements were intact and pupils were equal round and reactive to light. Eyelids were unremarkable. PULMONARY: Unlabored respirations. Good breath sounds bilaterally. No audible rales rhonchi or wheezing was noted. CARDIOVASCULAR: There is a regular rate and rhythm without any murmurs gallops or rubs. ABDOMEN: Soft and nontender with normal bowel sounds. SKIN: Skin is clear with no lesions or rashes and otherwise unremarkable. NEUROLOGIC: Patient is alert and oriented x3. Cranial nerves II through XII are grossly intact. Motor and sensory are also intact. Normal speech, volume and content. Symmetrical smile. intact. MUSCULOSKELETAL: Normal extremities with adequate strength and full range of motion. No lower extremity swelling or edema. No calf tenderness. LYMPHATICS: No significant lymphadenopathy is noted PSYCHIATRIC: Normal psychiatric evaluation. Limitations: no limitations Course Vital Signs 02/24/22 02/24/22 02/24/22 09:48 14:15 14:59 Temperature 98 F 98.6 F Pulse Rate 82 56 L 70 Respiratory 18 18 18 Rate Blood Pressure 179/105 182/98 146/82 O2 Sat by Pulse 99 100 98 Oximetry Medical Decision Making - Medical Decision Making Patient was given hydralazine his pressure came down to 143/82. Patient states he is feeling better but he still feels a little lightheaded. - Lab Data Result diagrams: 02/24/22 10:05 02/24/22 10:05 Lab Results 02/24/22 02/24/22 02/24/22 Range/Units 10:05 10:05 10:05 WBC 10.3 (3.8-10.6) k/uL RBC 5.18 (4.30-5.90) m/uL Hgb 16.3 (13.0-17.5) gm/dL Hct 48.5 (39.0-53.0) % MCV 93.6 (80.0-100.0) fL MCH 31.4 (25.0-35.0) pg MCHC 33.5 (31.0-37.0) g/dL RDW 13.6 (11.5-15.5) % Plt Count 266 (150-450) k/uL MPV 8.5 Neutrophils % 46 % Lymphocytes % 41 % Monocytes % 8 % Eosinophils % 2 % Basophils % 1 % Neutrophils # 4.7 (1.3-7.7) k/uL Lymphocytes # 4.2 (1.0-4.8) k/uL Monocytes # 0.8 (0-1.0) k/uL Eosinophils # 0.2 (0-0.7) k/uL Basophils # 0.1 (0-0.2) k/uL PT 9.5 (9.0-12.0) sec INR 0.9 (<1.2) APTT 23.9 (22.0-30.0) sec Sodium 140 (137-145) mmol/L Potassium 3.5 (3.5-5.1) mmol/L Chloride 102 (98-107) mmol/L Carbon Dioxide 25 (22-30) mmol/L Anion Gap 13 mmol/L BUN 22 H (9-20) mg/dL Creatinine 1.09 (0.66-1.25) mg/dL Est GFR (CKD-EPI)AfAm 83 (>60 ml/min/1.73 sqM) Est GFR (CKD-EPI)NonAf 71 (>60 ml/min/1.73 sqM) Glucose 108 H (74-99) mg/dL Calcium 9.4 (8.4-10.2) mg/dL Total Bilirubin 0.6 (0.2-1.3) mg/dL AST 23 (17-59) U/L ALT 26 (4-49) U/L Alkaline Phosphatase 80 (38-126) U/L Troponin I (0.000-0.034) ng/mL Total Protein 7.4 (6.3-8.2) g/dL Albumin 4.6 (3.5-5.0) g/dL 02/24/22 Range/Units 10:05 WBC (3.8-10.6) k/uL RBC (4.30-5.90) m/uL Hgb (13.0-17.5) gm/dL Hct (39.0-53.0) % MCV (80.0-100.0) fL MCH (25.0-35.0) pg MCHC (31.0-37.0) g/dL RDW (11.5-15.5) % Plt Count (150-450) k/uL MPV Neutrophils % % Lymphocytes % % Monocytes % % Eosinophils % % Basophils % % Neutrophils # (1.3-7.7) k/uL Lymphocytes # (1.0-4.8) k/uL Monocytes # (0-1.0) k/uL Eosinophils # (0-0.7) k/uL Basophils # (0-0.2) k/uL PT (9.0-12.0) sec INR (<1.2) APTT (22.0-30.0) sec Sodium (137-145) mmol/L Potassium (3.5-5.1) mmol/L Chloride (98-107) mmol/L Carbon Dioxide (22-30) mmol/L Anion Gap mmol/L BUN (9-20) mg/dL Creatinine (0.66-1.25) mg/dL Est GFR (CKD-EPI)AfAm (>60 ml/min/1.73 sqM) Est GFR (CKD-EPI)NonAf (>60 ml/min/1.73 sqM) Glucose (74-99) mg/dL Calcium (8.4-10.2) mg/dL Total Bilirubin (0.2-1.3) mg/dL AST (17-59) U/L ALT (4-49) U/L Alkaline Phosphatase (38-126) U/L Troponin I <0.012 (0.000-0.034) ng/mL Total Protein (6.3-8.2) g/dL Albumin (3.5-5.0) g/dL Disposition Clinical Impression: Hypertensive urgency Disposition: HOME SELF-CARE Condition: Good Additional Instructions: Patient should take his blood pressure twice a day 12 hours apart. Is patient prescribed a controlled substance at d/c from ED?: No Referrals: Pacheco Louis DO [Primary Care Provider] - 1-2 days Time of Disposition: 15:28
== END 2022-02-24 15:39 | disposition home or self-care (01) ==
LOC: EC 09:30
DX: I16.0 Hypertensive urgency (principal); I10 Essential (primary) hypertension; F17.200 Nicotine dependence, unspecified, uncomplicated; Z88.1 Allergy status to other antibiotic agents; Z79.51 Long term (current) use of inhaled steroids; Z79.899 Other long term (current) drug therapy
CPT/HCPCS: 36415; 93005; 80053; 84484; 85025; 85610; 85730; 99284; 96374; J0360

== ENCOUNTER → 2023-09-21 | Outpatient (CLI) | payer OTHER ==
--- NOTE | 2023-09-21 17:31 | CTL ---
EXAMINATION TYPE: CT Low Dose Lung DATE OF EXAM ORDERED: 09/21/2023 HISTORY: . Lung cancer screening CT DLP: 90.[address] CTDI: 2.2 mGy Automated exposure control for dose reduction was used. SCREENING VISIT: Initial COMPARISON: CT chest 08/31/2022 TECHNIQUE: Low dose computed tomography scan was performed through the chest at 1 mm thick sections a nd reconstructed images in the coronal plane at [address] DIAGNOSTIC QUALITY: Satisfactory FINDINGS: LUNG NODULES: Present, detailed below: 1. There is a 0.8 cm density in the periphery of the lateral right upper lobe. Series 4 image 71. Thi s appears to be related to the apical scarring and is stable. 2. There is some triangular density along the major fissure adjacent to the right pleural margin. The bases 1.7 cm, example image series 4 image 114. This is stable from comparison. 3. There is some scarring at the bilateral lung apices which appears stable to comparison study. LUNGS: COPD: Severity: Mild Fibrosis: Severity: None Lymph nodes: None Other findings: None RIGHT PLEURAL SPACE: Effusion: None Calcification: None Thickening: None Pneumothorax: None LEFT PLEURAL SPACE: Effusion: None Calcification: None Thickening: None Pneumothorax: None HEART: Heart Size: Normal Coronary calcification: None Pericardial effusion: None OTHER FINDINGS: Upper abdomen: Normal Bony thorax: No Supraclavicular region: Normal Other: Ascending thoracic aorta at the level the main pulmonary artery measures 3.7 cm. The main pul monary artery at the bifurcation measures 2.7 cm. IMPRESSION: Stable appearing lung findings. Follow-up low-dose CT chest recommended [address] CHEST RECOMMENDATION: Follow-up low-dose CT chest one year CT LUNG RAD: Lung-Rad 2 Benign Appearance or Behavior
== END | disposition home or self-care (01) ==
LOC: RADCTMAIN 15:44
PROVIDERS: ATTEND Internal Medicine
DX: Z12.2 Encounter for screening for malignant neoplasm of respiratory organs (principal); F17.210 Nicotine dependence, cigarettes, uncomplicated
CPT/HCPCS: 71271

== ENCOUNTER → 2024-12-27 | Outpatient (CLI) | payer MEDICARE ==
--- NOTE | 2024-12-27 18:38 | CTL ---
EXAMINATION TYPE: CT Low Dose Lung DATE OF EXAM: 12/27/2024 5:48 PM COMPARISON: 10/01/2023 CLINICAL INDICATION: Male, 69 years old with history of Z12.2, F17.210 NICOTINE DEPENDENCE; F/u lung screening for nicotine dependence of 1ppd x45 years, current smoker, hx of chronic bronchitis, histor y of tobacco use. TECHNIQUE: Multiple axial non-contrast scans were obtained from approximately the lung apices through the upper abdomen. Coronal and sagittal reformatted images were obtained. Low dose technique was uti lized. MIP were created on a separate workstation and submitted for review. CT DLP: 94.1 mGycm, Automated exposure control for dose reduction was used. CT Contrast: Contrast used: None Oral contrast used: None FINDINGS: Lack of intravenous contrast and low dose technique limits the evaluation of the vascular and soft ti ssue structures. LUNGS: No evidence of pulmonary fibrosis. No evidence of focal consolidation, pneumothorax or pleural effusion. Centrilobular and paraseptal emphysema changes. Stable apical scarring in the right lung apex. Nodules: RUL: None. RML: None. RLL: 3 mm series 5 image 45, stable. AYDE: None. LLL: None. AIRWAY: Patent and unremarkable. HEART: Size within normal limits. No significant coronary artery calcifications. MEDIASTINUM: No gross evidence of adenopathy. VASCULATURE: No aortic aneurysm. MUSCULOSKELETAL: No acute osseous abnormalities remote right-sided rib fractures which are incomplete ly fused. SOFT TISSUES/LYMPH NODES: Unremarkable. LOWER NECK: No significant findings. UPPER ABDOMEN: No significant findings. IMPRESSION: 1. No clinically significant pulmonary nodules. 2. Mild emphysema. CT LUNG RAD AND CT CHEST RECOMMENDATION: Lung-Rad 2 Benign Appearance or Behavior: Continue annual sc reening with LDCT in 12 months. S Modifier (other clinically significant findings): None Recommend smoking cessation (if current smoker), or continuation of smoking cessation (if prior smoke r). Annual screening for lung cancer with low-dose computed tomography is recommended in adults ages 55 to 77 years who have a 30 pack-year smoking history and currently smoke or have quit within the pa st 15 years. Screening should be discontinued once a person has not smoked for 15 years or develops a health problem that substantially limits life expectancy or the ability or willingness to have curat lul lung surgery. Lung rads 2021 [email or web address] [facility], , 12/27/2024 6:36 PM
== END | disposition home or self-care (01) ==
LOC: RADCTMAIN 17:23
PROVIDERS: ATTEND Internal Medicine
DX: Z12.2 Encounter for screening for malignant neoplasm of respiratory organs (principal); F17.210 Nicotine dependence, cigarettes, uncomplicated; J43.2 Centrilobular emphysema
CPT/HCPCS: 71271

== ENCOUNTER 2025-01-09 15:00 | Emergency (ER) | payer MEDICARE ==
[2025-01-09 15:07] VITALS: TEMP 98.7
--- NOTE | 2025-01-09 15:32 | XR ---
EXAMINATION TYPE: XR chest 2V DATE OF EXAM: 01/09/2025 3:26 PM COMPARISON: Chest radiographs from 09/14/2023 TECHNIQUE: XR chest 2V Frontal and lateral views of the chest. CLINICAL INDICATION:Male, 69 years old with history of cough congestion short of breath; FINDINGS: Lungs/Pleura: There is flattening of the diaphragm with increased lucency of the lungs. No evidence o f pneumothorax, pleural effusion or focal consolidation. Pulmonary vascularity: Unremarkable. Heart/mediastinum: Cardiomediastinal silhouette is unremarkable. Atherosclerotic calcifications are seen in the aorta. Musculoskeletal: No acute osseous pathology. Multilevel degenerative disc disease. IMPRESSION: 1. No acute cardiopulmonary disease process. 2. COPD changes. [facility], , 01/09/2025 3:29 PM
[2025-01-09 17:30] LABS: Basophils # (A) 0.05 10*3/uL (0.00-0.10); Basophils % (A) 0.6 %; Eosinophils # (A) 0.21 10*3/uL (0.04-0.35); Eosinophils % (A) 2.5 %; HCT 47.6 % (39.6-50.0); HGB 16.5 g/dL (13.0-17.0); Lymphocytes # (A) 2.83 10*3/uL (0.90-5.00); Lymphocytes % (A) 34.0 %; MCH 31.7 pg (27.0-32.0); MCHC 34.7 g/dL (32.0-37.0); MCV 91.5 fL (80.0-97.0); Monocytes # (A) 0.76 10*3/uL (0.20-1.00); Monocytes % (A) 9.1 %; Neutrophils # (A) 4.45 10*3/uL (1.80-7.70); Neutrophils % (A) 53.6 %; Platelet Count 248 10*3/uL (140-440); RBC 5.20 10*6/uL (4.40-5.60); RDW 12.9 % (11.5-14.5); WBC 8.32 10*3/uL (4.50-10.00)
[2025-01-09 17:48] LABS: ALT 20 U/L (4-49); AST 24 U/L (17-59); African American GFR (CKD) 82 (>60 ml/min/1.73 sqM); Albumin 4.4 g/dL (3.5-5.0); Alkaline Phosphatase 70 U/L (38-126); Anion Gap 11 mmol/L; Blood Urea Nitrogen 19 mg/dL (9-20); Calcium 9.6 mg/dL (8.4-10.2); Carbon Dioxide 22 mmol/L (22-30); Chloride 102 mmol/L (98-107); Glucose 102 mg/dL (74-99); Non-African American GFR(CKD) 71 (>60 ml/min/1.73 sqM); Potassium 4.3 mmol/L (3.5-5.1); Sodium 135 mmol/L (137-145); Total Protein 7.3 g/dL (6.3-8.2)
[2025-01-09 17:56] LABS: INR 1.0 (<1.2); NT-Pro-B-Type Natriuretic Pept 155 pg/mL; Partial Thromboplastin Time 22.4 sec (22.0-30.0); Prothrombin Time 10.9 sec (10.0-12.5)
--- NOTE | 2025-01-09 18:40 | ED ---
General Adult HPI - General Chief complaint: Shortness of Breath Stated complaint: Pneunonia Symptoms Time Seen by Provider: 01/09/25 16:12 Source: patient Mode of arrival: ambulatory Limitations: no limitations - History of Present Illness Initial comments: 69-year-old male presenting with chief complaint of cough congestion and sinus pressure. This has been ongoing for few weeks. Patient admits to shortness of breath on exertion. States that the cough is productive. Denies chest pain. States that he does get some chest tightness with his difficulty breathing. He has been seen by his PCP as well as her plate setter. States he has been on multiple rounds of antibiotics, he is currently on levofloxacin. He has been taking nasal steroid spray. No fever. No lower extremity swelling. Admits to headache. Patient is a smoker and has history of COPD. - Related Data Home Medications Medication Instructions Recorded Confirmed Losartan-Hctz 50-12.5 mg [Hyzaar 1 tab PO PC-LUNCH 07/25/19 08/19/22 50-12.5] Atorvastatin Calcium [Lipitor] 10 mg PO PC-LUNCH 06/15/21 08/19/22 Albuterol Sulfate [Albuterol 2 puff INHALATION RT-QID PRN 09/01/21 08/19/22 Sulfate Hfa] Cholecalciferol [Vitamin D3 (25 50 mcg PO PC-LUNCH 09/01/21 08/19/22 Mcg = 1000 Iu)] Zinc 50 mg PO PC-LUNCH 09/08/21 08/19/22 Ascorbic Acid [Vitamin C] 500 mg PO PC-LUNCH 08/17/22 08/19/22 Ipratropium-Albuterol Nebulize 3 ml INHALATION RT-Q6H PRN 08/19/22 08/19/22 [Duoneb 0.5 mg-3 mg/3 ml Soln] Previous Rx's Medication Instructions Recorded predniSONE [Deltasone] 60 mg PO DAILY 5 Days #15 tab 01/09/25 Allergies Allergy/AdvReac Type Severity Reaction Status Date / Time varenicline [From Chantix] Allergy Nausea & Verified 01/09/25 15:07 Vomiting amoxicillin [From Augmentin] AdvReac Nausea & Verified 08/19/22 19:33 Vomiting clavulanic acid AdvReac Nausea & Verified 08/19/22 19:33 [From Augmentin] Vomiting- hospitalized metronidazole [From Flagyl] AdvReac oral pill Verified 08/19/22 19:33 reaction nausea and vomiting Review of Systems ROS Statement: Those systems with pertinent positive or pertinent negative responses have been documented in the HPI. ROS Other: All systems not noted in ROS Statement are negative. Past Medical History Past Medical History: COPD, Hyperlipidemia, Hypertension, Prostate Disorder Additional Past Medical History / Comment(s): hx Flushing Palsy, Diverticulosis, frequent bronchitis-states improved with sinus surgery., BPH, states hx of influenza A May 2022 and residual cough . 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 Father Family Medical History: Coronary Artery Disease (CAD), Deep Vein Thrombosis (DVT) Additional Family Medical History / Comment(s): Father has had CABG General Exam Limitations: no limitations General appearance: alert, in no apparent distress Head exam: Present: atraumatic, normocephalic, normal inspection Eye exam: Present: normal appearance, EOMI Neck exam: Present: normal inspection. Absent: meningismus Respiratory exam: Present: normal lung sounds bilaterally. Absent: respiratory distress, wheezes, rales, rhonchi, stridor Cardiovascular Exam: Present: regular rate, normal rhythm, normal heart sounds. Absent: systolic murmur, diastolic murmur, rubs, gallop, clicks Neurological exam: Present: alert, oriented X3 Psychiatric exam: Present: normal affect, normal mood Skin exam: Present: warm, dry, normal color Course Vital Signs 01/09/25 01/09/25 01/09/25 15:03 19:55 19:58 Temperature 98.7 F Pulse Rate 110 H 76 79 Respiratory 20 18 Rate Blood Pressure 134/94 144/96 O2 Sat by Pulse 98 100 Oximetry 01/09/25 20:07 Temperature Pulse Rate 80 Respiratory Rate Blood Pressure O2 Sat by Pulse Oximetry Medical Decision Making - Medical Decision Making Was pt. sent in by a medical professional or institution (SUSAN Kaiser, HOME HEALTH CLINICAL SUPERVISOR, urgent care, hospital, or detention...) When possible be specific @ -No Did you speak to anyone other than the patient for history (EMS, parent, family, police, friend...)? What history was obtained from this source @ -No Did you review nursing and triage notes (agree or disagree)? Why? @ -I reviewed and agree with nursing and triage notes Were old charts reviewed (outside hosp., previous admission, EMS record, old EKG, old radiological studies, urgent care reports/EKG's, detention records)? Report findings @ -No old charts were reviewed Differential Diagnosis (chest pain, altered mental status, abdominal pain women, abdominal pain men, vaginal bleeding, weakness, fever, dyspnea, syncope, headache, dizziness, GI bleed, back pain, seizure, CVA, palpatations, mental health, musculoskeletal)? @ -MDM Differential Dyspnea: Coronary syndrome, arrhythmia, tamponade, asthma, COPD, pulmonary embolism, pneumonia, pneumothorax, pulmonary effusion, anaphylaxis, diabetic ketoacidosis, flailed chest, pulmonary contusion, diaphragmatic rupture, anemia, neuromuscular… this is not meant to be an all-inclusive list. EKG interpreted by me (3pts min.). @ -As above X-rays interpreted by me (1pt min.). @ -Chest x-ray shows no acute process CT interpreted by me (1pt min.). @ -None done U/S interpreted by me (1pt. min.). @ -None done What testing was considered but not performed or refused? (CT, X-rays, U/S, labs)? Why? @ -None What meds were considered but not given or refused? Why? @ -None Did you discuss the management of the patient with other professionals (professionals i.e. SUSAN Kaiser, HOME HEALTH CLINICAL SUPERVISOR, lab, RT, psych nurse, social media editor, bush hog operator, teacher, recreation officer, case therapist)? Give summary @ -No Was smoking cessation discussed for >3mins.? @ -No Was critical care preformed (if so, how long)? @ -No Were there social determinants of health that impacted care today? How? (Homelessness, low income, unemployed, alcoholism, drug addiction, transportation, low edu. Level, literacy, decrease access to med. care, retirement, rehab)? @ -No Was there de-escalation of care discussed even if they declined (Discuss DNR or withdrawal of care, Hospice)? DNR status @ -No What co-morbidities impacted this encounter? (DM, HTN, Smoking, COPD, CAD, Cancer, CVA, ARF, Chemo, Hep., AIDS, mental health diagnosis, sleep apnea, morbid obesity)? @ -COPD, smoking Was patient admitted / discharged? Hospital course, mention meds given and ro sybil, prescriptions, significant lab abnormalities, going to OR and other pertinent info. @ -69-year-old male presenting with chief complaint of cough congestion headache and shortness of breath. Heart and lungs are clear to auscultation. Chest x-ray shows COPD changes and no acute process. Lab work shows no leukocytosis or anemia. Negative D-dimer and negative troponin. BNP is 155. Patient is educated on today's findings. Vital signs are stable. He is currently on antibiotics. Will start him on prednisone. Reports he does not need any refills for his nebulizer. Instructed to follow-up with his plate setter and to follow-up with ENT. Follow-up with PCP. Report back to ER with any new or worsening symptoms. Discussed return parameters and answered all questions. Patient conveyed verbal understanding and agreed to the plan. I discussed this case in detail with my attending Dr. Prabhakar Undiagnosed new problem with uncertain prognosis? @ -No Drug Therapy requiring intensive monitoring for toxicity (Heparin, Nitro, Insulin, Cardizem)? @ -No Were any procedures done? @ -No Diagnosis/symptom? @ -COPD exacerbation Acute, or Chronic, or Acute on Chronic? @ -Acute Uncomplicated (without systemic symptoms) or Complicated (systemic symptoms)? @ -Uncomplicated Side effects of treatment? @ -No Exacerbation, Progression, or Severe Exacerbation? @ -Exacerbation - Lab Data Result diagrams: 01/09/25 17:04 01/09/25 17:04 Lab Results 01/09/25 01/09/25 01/09/25 Range/Units 17:04 17:04 17:04 WBC 8.32 (4.50-10.00) 10*3/uL RBC 5.20 (4.40-5.60) 10*6/uL Hgb 16.5 (13.0-17.0) g/dL Hct 47.6 (39.6-50.0) % MCV 91.5 (80.0-97.0) fL MCH 31.7 (27.0-32.0) pg MCHC 34.7 (32.0-37.0) g/dL Plt Count 248 (140-440) 10*3/uL MPV 10.9 (9.5-12.2) fL Immature Gran % (Auto) 0.2 % Neutrophils % 53.6 % Lymphocytes % 34.0 % Monocytes % 9.1 % Eosinophils % 2.5 % Basophils % 0.6 % Immature Gran # 0.02 (0.00-0.04) 10*3/uL Neutrophils # 4.45 (1.80-7.70) 10*3/uL Lymphocytes # 2.83 (0.90-5.00) 10*3/uL Monocytes # 0.76 (0.20-1.00) 10*3/uL Eosinophils # 0.21 (0.04-0.35) 10*3/uL Basophils # 0.05 (0.00-0.10) 10*3/uL PT 10.9 (10.0-12.5) sec INR 1.0 (<1.2) APTT 22.4 (22.0-30.0) sec D-Dimer 0.24 (<0.60) mg/L FEU Sodium 135 L (137-145) mmol/L Potassium 4.3 (3.5-5.1) mmol/L Chloride 102 (98-107) mmol/L Carbon Dioxide 22 (22-30) mmol/L Anion Gap 11 mmol/L BUN 19 (9-20) mg/dL Creatinine 1.08 (0.66-1.25) mg/dL Est GFR (CKD-EPI)AfAm 82 (>60 ml/min/1.73 sqM) Est GFR (CKD-EPI)NonAf 71 (>60 ml/min/1.73 sqM) Glucose 102 H (74-99) mg/dL Calcium 9.6 (8.4-10.2) mg/dL Total Bilirubin 0.9 (0.2-1.3) mg/dL AST 24 (17-59) U/L ALT 20 (4-49) U/L Alkaline Phosphatase 70 (38-126) U/L Troponin I (0.000-0.034) ng/mL NT-Pro-B Natriuret Pep 155 pg/mL Total Protein 7.3 (6.3-8.2) g/dL Albumin 4.4 (3.5-5.0) g/dL 01/09/25 Range/Units 17:04 WBC (4.50-10.00) 10*3/uL RBC (4.40-5.60) 10*6/uL Hgb (13.0-17.0) g/dL Hct (39.6-50.0) % MCV (80.0-97.0) fL MCH (27.0-32.0) pg MCHC (32.0-37.0) g/dL Plt Count (140-440) 10*3/uL MPV (9.5-12.2) fL Immature Gran % (Auto) % Neutrophils % % Lymphocytes % % Monocytes % % Eosinophils % % Basophils % % Immature Gran # (0.00-0.04) 10*3/uL Neutrophils # (1.80-7.70) 10*3/uL Lymphocytes # (0.90-5.00) 10*3/uL Monocytes # (0.20-1.00) 10*3/uL Eosinophils # (0.04-0.35) 10*3/uL Basophils # (0.00-0.10) 10*3/uL PT (10.0-12.5) sec INR (<1.2) APTT (22.0-30.0) sec D-Dimer (<0.60) mg/L FEU Sodium (137-145) mmol/L Potassium (3.5-5.1) mmol/L Chloride (98-107) mmol/L Carbon Dioxide (22-30) mmol/L Anion Gap mmol/L BUN (9-20) mg/dL Creatinine (0.66-1.25) mg/dL Est GFR (CKD-EPI)AfAm (>60 ml/min/1.73 sqM) Est GFR (CKD-EPI)NonAf (>60 ml/min/1.73 sqM) Glucose (74-99) mg/dL Calcium (8.4-10.2) mg/dL Total Bilirubin (0.2-1.3) mg/dL AST (17-59) U/L ALT (4-49) U/L Alkaline Phosphatase (38-126) U/L Troponin I <0.012 (0.000-0.034) ng/mL NT-Pro-B Natriuret Pep pg/mL Total Protein (6.3-8.2) g/dL Albumin (3.5-5.0) g/dL Disposition Clinical Impression: COPD exacerbation Disposition: HOME SELF-CARE Condition: Fair Instructions (If sedation given, give patient instructions): COPD (Chronic Obstructive Pulmonary Disease) (ED) Additional Instructions: Follow-up with your PCP, plate setter, and ENT. Report back to the ER with any new or worsening symptoms. Prescriptions: predniSONE [Deltasone] 60 mg PO DAILY 5 Days #15 tab Is patient prescribed a controlled substance at d/c from ED?: No Referrals: Juan Lovett MD [Primary Care Provider] - 1-2 days Glenn Draper MD [STAFF PHYSICIAN] - 1-2 days Remi Barroso MD [STAFF PHYSICIAN] - 1-2 days Time of Disposition: 18:40
[2025-01-09] MEDS: methylPREDNISolone SOD SUCCI 125 MG/2 ML VIAL IM ONE (19:54)
[2025-01-09 19:57] VITALS: BP 144/96; RESP 18
[2025-01-09] MEDS: IPRATROPIUM-ALBUTEROL 3 ML NEB INHALATION STA (19:57)
[2025-01-09 20:07] VITALS: PULSE 80
== END 2025-01-09 20:09 | disposition home or self-care (01) ==
LOC: EC 15:00
DX: J44.1 Chronic obstructive pulmonary disease with (acute) exacerbation (principal); F17.200 Nicotine dependence, unspecified, uncomplicated; Z88.0 Allergy status to penicillin; Z88.1 Allergy status to other antibiotic agents; Z88.8 Allergy status to other drugs, medicaments and biological substances
CPT/HCPCS: 99285; 36415; 94640; 93005; 85379; 83880; 80053; 84484; 85025; 85610; 85730; 71046; 96372; J2919